=== PATIENT | female | born 1970 | race Caucasian/White ===

== ENCOUNTER 2019-03-18 08:58 | Inpatient (IN) | payer SELFPAY ==
[2019-03-18] MEDS ORDERED: NS 0.9% 1000 ML** 1,000 ML IV ONE ×2 (09:30→18:47)
[2019-03-18] MEDS ORDERED: Ondansetron INJ* 2 MG/ML VIAL IV ONE ×2 (09:55→16:44)
[2019-03-18 10:23] LABS: ABS Basophils 0.1 10^3/ul (0-0.2); ABS Lymphocytes 2.5 10^3/ul (1.0-4.8); ABS Monocytes 1.2 10^3/ul (0-0.8); ABS Neutrophils 10.8 10^3/ul (1.5-7.7); Eosinophil % 0.2 %; Hematocrit 46 % (35-47); Hemoglobin 15.3 g/dL (12.0-16.0); Lymphocyte % 17.2 %; Mean Corpuscular HGB Conc 33 g/dL (31-36); Mean Corpuscular Hemoglobin 30 pg (27-31); Mean Corpuscular Volume 89 fL (80-97); Mean Platelet Volume 9.2 fL (7.4-10.4); Platelet Count 352 10^3/uL (150-450); Red Blood Count 5.18 10^6 /uL (3.70-4.87); Red Cell Distribution Width 15 % (10-15); White Blood Count 14.6 10^3/uL (3.5-10.8)
[2019-03-18 10:29] LABS: INR 1.04 (0.82-1.09)
[2019-03-18 10:47] LABS: Albumin 4.3 g/dL (3.2-5.2); Albumin/Globulin Ratio 1.6 (1-3); BUN/Creatinine Ratio 8.5 (8-20); C Reactive Protein 2.77 mg/L (<8.01); Calcium 9.2 mg/dL (8.6-10.3); EGFR Non-African American 86.8 (>60); Globulin 2.7 g/dL (2-4); Magnesium 1.9 mg/dL (1.9-2.7); Total Bilirubin 0.7 mg/dL (0.2-1.0)
[2019-03-18 10:53] LABS: HCG Pregnancy 2.62 mIU/mL
[2019-03-18 11:13] LABS: Urine Appearance Clear; Urine Bacteria 1+ (Absent); Urine Bilirubin Negative (Negative); Urine Blood 1+ (Negative); Urine Color Yellow; Urine Glucose Negative (Negative); Urine Ketones Negative (Negative); Urine Nitrite Negative (Negative); Urine Protein Negative (Negative); Urine Red Blood Cell 1+(3-5/hpf) (Absent); Urine Specific Gravity 1.003 (1.010-1.030); Urine Squamous Epithelial Cell Present (Absent); Urine Urobilinogen Negative (Negative); Urine White Blood Cell Trace(0-5/hpf) (Absent)
--- NOTE | 2019-03-18 14:23 | ED ---
Abdominal Pain/Female - HPI Summary HPI Summary: this patient is a 49-year-old female who presents to the ED with nausea, vomiting and mild diffuse abdominal pain which occurred for approximately 18 hours yesterday. She states this has been happening more frequently. This began approximately 6 months ago, endorsing nausea, vomiting and abdominal pain approximately 8 hours after eating. She denies eating anything specific which has been causing the symptoms. Denies any allergens to food. Symptoms are not worse or better after eating anything specific, including fatty foods. This is the third time she has been seen in the ED, [place] [facility] no imaging has been done. Patient states proximal 8 hours after eating, every 4-10 days, she will have profuse nausea, vomiting, diarrhea and abdominal pain for the following 12-18 hours. She states over the past 4 days, she has been eating chicken broth and wheat thins, and denies any N/V sxs until yesterday when she ate chicken salad. She also endorses diaphoresis without subjective fevers. - History of Current Complaint Chief Complaint: EDNauseaVomitDiarrh Stated Complaint: VOMITING,HEADACHE PER PT Time Seen by Provider: 03/18/19 09:04 Hx Obtained From: Patient ?: No Onset/Duration: Sudden Onset Timing: Hours Severity Initially: Moderate Severity Currently: Moderate Pain Intensity: 3 Pain Scale Used: 0-10 Numeric Location: Other - diffuse - worse to the RUQ Character: Cramping Aggravating Factor(s): Food Alleviating Factor(s): Spontaneous Resolution Associated Signs and Symptoms: Positive: Negative - Risk Factors Ectopic Risk Factor: Negative Allergies/Adverse Reactions: Allergies Allergy/AdvReac Type Severity Reaction Status Date / Time morphine AdvReac Severe GI Upset Verified 03/18/19 09:03 PMH/Surg Hx/FS Hx/Imm Hx Previously Healthy: Yes - Immunization History Hx Pertussis Vaccination: No Immunizations Up to Date: Yes Infectious Disease History: No Infectious Disease History: Denies: Traveled Outside the [place] in Last 30 Days - Social History Occupation: Employed Full-time Lives: With Family Alcohol Use: None Hx Substance Use: Yes Substance Use Type: Reports: Marijuana Hx Tobacco Use: No Smoking Status (MU): Never Smoked Tobacco Review of Systems Constitutional: Negative Negative: Fever, Chills, Fatigue, Skin Diaphoresis Negative: Palpitations, Chest Pain Negative: Shortness Of Breath, Cough Positive: Abdominal Pain, Vomiting, Diarrhea, Nausea Genitourinary: Negative Positive: no symptoms reported, see HPI Negative: Arthralgia, Myalgia Neurological: Negative All Other Systems Reviewed And Are Negative: Yes Physical Exam Triage Information Reviewed: Yes Vital Signs On Initial Exam: Initial Vitals Temp Pulse Resp BP Pulse Ox 98.2 F 107 16 152/104 98 03/18/19 08:59 03/18/19 08:59 03/18/19 08:59 03/18/19 08:59 03/18/19 08:59 Vital Signs Reviewed: Yes Appearance: Positive: Well-Appearing, Well-Nourished Skin: Positive: Warm, Skin Color Reflects Adequate Perfusion Head/Face: Positive: Normal Head/Face Inspection Eyes: Positive: EMRE, Conjunctiva Clear Neck: Positive: Supple, No Lymphadenopathy Respiratory/Lung Sounds: Positive: Breath Sounds Present Cardiovascular: Positive: RRR, Pulses are Symmetrical in both Upper and Lower Extremities Abdomen Description: Positive: Soft, Other: - RUQ pain/negative mcghee's. Negative: CVA Tenderness (R), CVA Tenderness (L), Distended, Guarding Musculoskeletal: Positive: Normal, Strength/ROM Intact Neurological: Positive: Speech Normal Psychiatric: Positive: Affect/Mood Appropriate AVPU Assessment: Alert - E Diagnostics - Vital Signs Vital Signs Temp Pulse Resp BP Pulse Ox 03/18/19 13:05 76 139/98 95 03/18/19 12:05 73 148/104 98 03/18/19 11:20 75 127/90 96 03/18/19 09:19 123/90 03/18/19 08:59 98.2 F 107 16 152/104 98 - Laboratory Lab Results: Lab Results 03/18/19 03/18/19 03/18/19 Range/Units 10:15 10:15 10:15 WBC 14.6 H (3.5-10.8) 10^3/uL RBC 5.18 H (3.70-4.87) 10^6 /uL Hgb 15.3 (12.0-16.0) g/dL Hct 46 (35-47) % MCV 89 (80-97) fL MCH 30 (27-31) pg MCHC 33 (31-36) g/dL RDW 15 (10-15) % Plt Count 352 (150-450) 10^3/uL MPV 9.2 (7.4-10.4) fL Neut % (Auto) 74.0 % Lymph % (Auto) 17.2 % Rabun % (Auto) 7.9 % Eos % (Auto) 0.2 % Baso % (Auto) 0.7 % Absolute Neuts (auto) 10.8 H (1.5-7.7) 10^3/ul Absolute Lymphs (auto) 2.5 (1.0-4.8) 10^3/ul Absolute Monos (auto) 1.2 H (0-0.8) 10^3/ul Absolute Eos (auto) 0.0 (0-0.6) 10^3/ul Absolute Basos (auto) 0.1 (0-0.2) 10^3/ul Absolute Nucleated RBC 0.0 10^3/ul Nucleated RBC % 0.0 INR (Anticoag Therapy) 1.04 (0.82-1.09) Sodium 137 (135-145) mmol/L Potassium 3.0 L (3.5-5.0) mmol/L Chloride 102 (101-111) mmol/L Carbon Dioxide 28 (22-32) mmol/L Anion Gap 7 (2-11) mmol/L BUN 6 (6-24) mg/dL Creatinine 0.71 (0.51-0.95) mg/dL Est GFR ( Amer) 105.0 (>60) Est GFR (Non-Af Amer) 86.8 (>60) BUN/Creatinine Ratio 8.5 (8-20) Glucose 98 (70-100) mg/dL Lactic Acid (0.5-2.0) mmol/L Calcium 9.2 (8.6-10.3) mg/dL Magnesium 1.9 (1.9-2.7) mg/dL Total Bilirubin 0.70 (0.2-1.0) mg/dL AST 19 (13-39) U/L ALT 18 (7-52) U/L Alkaline Phosphatase 109 H (34-104) U/L C-Reactive Protein 2.77 (<8.01) mg/L Total Protein 7.0 (6.4-8.9) g/dL Albumin 4.3 (3.2-5.2) g/dL Globulin 2.7 (2-4) g/dL Albumin/Globulin Ratio 1.6 (1-3) Amylase 35 (29-103) U/L Lipase 12 (11.0-82.0) U/L Beta HCG, Quant 2.62 mIU/mL Urine Color Urine Appearance Urine pH (5-9) Ur Specific [place] (1.010-1.030) Urine Protein (Negative) Urine Ketones (Negative) Urine Blood (Negative) Urine Nitrate (Negative) Urine Bilirubin (Negative) Urine Urobilinogen (Negative) Ur Leukocyte Esterase (Negative) Urine WBC (Auto) (Absent) Urine RBC (Auto) (Absent) Ur Squamous Epith Cells (Absent) Urine Bacteria (Absent) Urine Glucose (Negative) 03/18/19 03/18/19 Range/Units 10:15 10:56 WBC (3.5-10.8) 10^3/uL RBC (3.70-4.87) 10^6 /uL Hgb (12.0-16.0) g/dL Hct (35-47) % MCV (80-97) fL MCH (27-31) pg MCHC (31-36) g/dL RDW (10-15) % Plt Count (150-450) 10^3/uL MPV (7.4-10.4) fL Neut % (Auto) % Lymph % (Auto) % Rabun % (Auto) % Eos % (Auto) % Baso % (Auto) % Absolute Neuts (auto) (1.5-7.7) 10^3/ul Absolute Lymphs (auto) (1.0-4.8) 10^3/ul Absolute Monos (auto) (0-0.8) 10^3/ul Absolute Eos (auto) (0-0.6) 10^3/ul Absolute Basos (auto) (0-0.2) 10^3/ul Absolute Nucleated RBC 10^3/ul Nucleated RBC % INR (Anticoag Therapy) (0.82-1.09) Sodium (135-145) mmol/L Potassium (3.5-5.0) mmol/L Chloride (101-111) mmol/L Carbon Dioxide (22-32) mmol/L Anion Gap (2-11) mmol/L BUN (6-24) mg/dL Creatinine (0.51-0.95) mg/dL Est GFR ( Amer) (>60) Est GFR (Non-Af Amer) (>60) BUN/Creatinine Ratio (8-20) Glucose (70-100) mg/dL Lactic Acid 1.5 (0.5-2.0) mmol/L Calcium (8.6-10.3) mg/dL Magnesium (1.9-2.7) mg/dL Total Bilirubin (0.2-1.0) mg/dL AST (13-39) U/L ALT (7-52) U/L Alkaline Phosphatase (34-104) U/L C-Reactive Protein (<8.01) mg/L Total Protein (6.4-8.9) g/dL Albumin (3.2-5.2) g/dL Globulin (2-4) g/dL Albumin/Globulin Ratio (1-3) Amylase (29-103) U/L Lipase (11.0-82.0) U/L Beta HCG, Quant mIU/mL Urine Color Yellow Urine Appearance Clear Urine pH 7.0 (5-9) Ur Specific [place] 1.003 L (1.010-1.030) Urine Protein Negative (Negative) Urine Ketones Negative (Negative) Urine Blood 1+ A (Negative) Urine Nitrate Negative (Negative) Urine Bilirubin Negative (Negative) Urine Urobilinogen Negative (Negative) Ur Leukocyte Esterase Negative (Negative) Urine WBC (Auto) Trace(0-5/hpf) (Absent) Urine RBC (Auto) 1+(3-5/hpf) A (Absent) Ur Squamous Epith Cells Present A (Absent) Urine Bacteria 1+ A (Absent) Urine Glucose Negative (Negative) Result Diagrams: 03/18/19 10:15 03/18/19 10:15 Lab Statement: Any lab studies that have been ordered have been reviewed, and results considered in the medical decision making process. Abdominal Pain Fem Course/Dx - Course Course Of Treatment: During this course of treatment, the patient is evaluated for abdominal pain, nausea, vomiting and some diarrhea. Labs obtained show a 14 ,000 white count and elevated CRP. A gallbladder US: IMPRESSION: CHOLELITHIASIS WITH A SLIGHTLY THICKENED GALLBLADDER WALL MEASURING 3 MM. THE SONOGRAPHIC FINDINGS CAN BE ASSOCIATED WITH ACUTE CHOLECYSTITIS IN THE CORRECT CLINICAL SETTING. IF IT WILL INFLUENCE CLINICAL MANAGEMENT FURTHER CHARACTERIZATION COULD BE MADE WITH A HIDA SCAN OR MRCP. Discussed with Dr. Alexander who recommends HIDA if patient is symptomatic. Discussed with Dr. Bird. HIDA scan ordered and is pending. Pt was given zofran while in the ED and since then, has been asymptomatic. She is signed out to Bradley Best PA-C pending results. - Diagnoses Differential Diagnosis: Positive: Gall Bladder Disease, Renal Colic, Other - biliary sludge, gastroenteritis, cholelithiasis, choledocolithiasis Provider Diagnoses: Nausea & vomiting Discharge ED - Sign-Out/Discharge Documenting (check all that apply): Sign-Out Patient Signing out patient TO: Bradley Best Patient Received Moderate/Deep Sedation with Procedure: No - Discharge Plan Condition: Fair Referrals: [facility], [Primary Care Provider] - - Billing Disposition and Condition Condition: FAIR
[2019-03-18] MEDS ORDERED: Ketorolac INJ* 30 MG/ML 1 ML VIAL IV ONE (15:54)
[2019-03-18] MEDS ORDERED: Morphine 4 MG/ML VIAL (1 ml) 4 MG/ML VIAL IV ONE ×2 (16:44→18:21)
[2019-03-18] MEDS ORDERED: Piperacillin/Tazobac ADVAN(*) 3.375 GM in NS 0.9% 100 ML* 100 ML IVPB ONE (18:47)
--- NOTE | 2019-03-18 18:52 | PN ---
Progress Note - Progress Note Date of Service: 03/18/19 Note: Patient signed out to me by Marion DAWSON pending results of HIDA scan. HIDA scan positive for cystic duct obstruction. Discussed patient with Dr. Mitchell is production checker for surgery who recommended admission to hospitalist for observation and IV antibiotics. Patient to be admitted to hospitalist in stable condition for IV antibiotics and further evaluation by surgery.
[2019-03-18] MEDS ORDERED: Morphine 4 MG/ML VIAL (1 ml) 4 MG/ML VIAL IV PRN (19:14)
[2019-03-18] MEDS ORDERED: NS 0.9% 1000 ML** 1,000 ML IV SCH (19:45)
[2019-03-18] MEDS ORDERED: Zosyn per Pharmacy* NOTE FOLLOW UP SCH (20:00)
[2019-03-18] MEDS: Ondansetron INJ* 2 MG/ML VIAL IV SCH ×2 (21:22→23:39)
--- NOTE | 2019-03-18 21:23 | HP ---
HOSPITAL MEDICINE HISTORY AND PHYSICAL: DATE OF ADMISSION: 03/18/19 PRIMARY CARE PHYSICIAN: None. ATTENDING PHYSICIAN: Luis Angel Jin MD * (dictation provided by Edy Maher NP ) CHIEF COMPLAINT: Abdominal pain with nausea and vomiting. HISTORY OF PRESENT ILLNESS: Ms. Doran is a 49-year-old female with no significant past medical history, who presents today to the hospital with a concern for intermittent episodes of abdominal pain with nausea and vomiting. Ms. Doran states that her symptoms began on Tuesday. At that time, she had about 12 hours of nausea and vomiting associated with abdominal pain in the right upper quadrant. She had these symptoms again on Tuesday and briefly again today and therefore, she came to the emergency room for evaluation. She denies diarrhea. She states at this point she does not have nausea or vomiting, but she does have right upper quadrant pain. She denies any fever. She has had no chest pain. No cough. No shortness of breath. In the emergency room, Ms. Doran had labs which showed a white blood cell count of 14.6 but a CRP of 2.77. Her urine showed no evidence of infection. She went on for gallbladder ultrasound, which showed concern for "cholelithiasis with slightly thickened gallbladder wall measuring 3 mm, the sonographic findings can be associated with acute cholecystitis in the correct clinical setting." She went on for a HIDA scan, which showed the following, "no radiotracer seen filling the gallbladder lumen either on the standard images or the post morphine injection 4 hour delayed images, scintigraphic findings are consistent with cystic duct obstruction." PAST MEDICAL HISTORY: None. FAMILY HISTORY: The patient reports that she is not aware of her father's side of the family or her father's medical history. The mother had breast cancer and at 62. SOCIAL HISTORY: She tried to quit smoking 3 months ago. She is smoking very intermittently now. No report of alcohol use or drug use. REVIEW OF SYSTEMS: A 14-point review of systems was completed with Ms. Doran and all those not mentioned above were negative. PHYSICAL EXAMINATION GENERAL: Ms. Doran is sitting in the bed, she is in no acute distress. VITAL SIGNS: Temperature 98.2, pulse rate 74, respiratory rate 16, O2 saturation 92% on room air, blood pressure 141/96. LUNGS: Clear to auscultation bilaterally with no accessory muscle use and good aeration. HEART: S1, S2. No murmur, rub, or gallop and regular. ABDOMEN: Soft. There is tenderness to deep palpation in the right upper quadrant. Bowel sounds are positive. No rebound or guarding. NEURO: She is alert. She is oriented x3. She moves all extremities equally. There is no facial asymmetry or focal weakness. Extraocular movements are intact. EXTREMITIES: No cyanosis or edema. SKIN: Intact. DIAGNOSTIC STUDIES/LAB DATA: WBC 14.6, hemoglobin 15.3, hematocrit 46, platelet count 352. INR 1.04. Sodium 137, potassium 3.0, chloride 102, serum bicarbonate 28, BUN 6, creatinine 0.71, glucose 98. Lactic acid 1.5. CRP 2.77. Urine shows no evidence of infection. EKG shows a sinus rhythm with no evidence of ischemia. Gallbladder ultrasound and hepatobiliary nuclear scan are as read per above and the EKG is pending. ASSESSMENT AND PLAN: Ms. Doran is a 49-year-old female with no known past medical history, who presents today to the hospital with concern for abdominal pain, nausea, and vomiting. Our plans are for admission to the hospital for the followin. Nausea, vomiting, abdominal pain with acute cystic duct obstruction: This case has been reviewed with Surgery and they will be consulting and seeing the patient tomorrow. In the meantime, the patient will be treated with Zosyn, intravenous fluids, Zofran for nausea, and morphine for pain. The patient has no known past medical history and is able to easily obtain 4 METs of activity on a regular basis. No further cardiac testing is indicated. 2. DVT prophylaxis. SCDs with early mobility. 3. Code status is full code. TIME SPENT: Approximately 60 minutes was spent on the admission of this patient ; more than half of the time was spent with the patient at the bedside reviewing the events leading up to this hospitalization, performing the physical examination, and reviewing my plan of care. EDY MAHER NP [id number]/[facility] #: [id number] MTDD
--- NOTE | 2019-03-18 21:47 | CONS ---
CONSULTATION REPORT: DATE OF CONSULT: 03/18/19 - ROOM #338 REASON FOR CONSULT: Right upper quadrant pain, nausea, and vomiting. HISTORY OF PRESENT ILLNESS: This is a 49-year-old female who presented to [facility] Emergency Room with a 5-month history of progressively worsening, episodic, postprandial nausea, vomiting associated with right upper quadrant abdominal pain and diarrhea. She had initially noted symptoms when living in [place] and presented to the local emergency room there. She reports she was told she had an elevated lipase at that time. She had no imaging done and was told to avoid fatty foods and green foods. The patient reports that she had a second episode of severe pain approximately 2 weeks after that and ended up back in that same emergency room. Again, she was discharged without imaging. The patient reports that she did self-medicate with Prilosec for a couple of weeks without any improvement in her symptoms. The patient has no primary care provider. She moved to [facility], and she reports that she has continued to have ongoing episodes of the same symptoms. Last episode began 4 o'clock this morning after eating a meal of chicken and pasta salad last night. She states she had multiple episodes of emesis with the food that she had eaten then. She describes yellow/gold colored emesis. She has had no fever or chills. She has had diarrhea. She states that she has been fine tolerating liquids but eating any solids seems to make things worse. She denies hematemesis or bilious emesis. After presenting to the emergency room today, laboratory work revealed a white blood cell count of 14.6, and she was sent for an ultrasound which showed cholelithiasis with gallbladder wall 3 mm. She was then sent for a HIDA scan and the initial HIDA scan did not visualize the gallbladder. Delayed images are pending. The patient has not had any pain medication since arriving to the emergency room , but she did receive antiemetics. The patient also reports a history of a 20-pound weight loss over the past 5 or 6 months, unintentional. She denies any tea colored urine or ketan colored stools. PAST MEDICAL HISTORY: She denies any medical problems, but has not seen a medical provider for 10 or 15 years. PAST SURGICAL HISTORY: She has had tonsillectomy in her youth, a ganglion cyst excision from the right wrist in the 1980s. She also has had a partial hysterectomy in 2005. This was done in [place]. MEDICATIONS: None. ALLERGIES: MORPHINE causes GI upset. FAMILY HISTORY: Mother had breast cancer. Father's history unknown. Half brother is alive and well. SOCIAL HISTORY: She is single. She is intermittent smoker who reports rare alcohol use and she smokes marijuana on occasion. REVIEW OF SYSTEMS: Review of system was completed and was significant for the abovementioned issues. Otherwise, 14-point review of systems was negative. PHYSICAL EXAM: On physical examination, she is 5 feet 4 inches, 180 pounds. She has a temperature of 98.2, pulse of 74. She has respirations of 16, her O2 sat is 92% on room air. Her blood pressure is 141/96. Her sclerae are anicteric, and mucous membranes are moist. No otorrhea, no rhinorrhea. Her abdomen was noted to have a healed scar and was obese, soft, nondistended, nontender. No palpable masses, no hernias, no hepato or splenomegaly appreciated. No Carlson sign. DIAGNOSTIC STUDIES/LAB DATA: Laboratory data was reviewed. CBC findings as above. Chemistries notable for a low potassium at 3.0. Other electrolytes were normal. Transaminases and bilirubin were normal. Alkaline phosphatase was mildly elevated at 109. CRP was normal at 2.77. Amylase and lipase were both normal. Imaging was reviewed. Ultrasound findings as above. Hepatobiliary scan findings as above. IMPRESSION: This is a 49-year-old female with what appears to be biliary colic without clinical evidence of acute cholecystitis. She has a HIDA scan pending. PLANS/RECOMMENDATIONS: I recommended that the patient have followup as an outpatient. If the HIDA scan is to be repeated, I would advise morphine administration prior to this to avoid false positive results on the delayed imaging. I have provided her with a card from our office and suggested that she follow up as an outpatient as it seems she will be a candidate for outpatient cholecystectomy. The above was discussed with staff PA in the emergency room. [id number]/[facility] #: [id number] PIA
[2019-03-18] MEDS: ZOSYN 3.375 GM Q8H per EXTENDED INFUSION IVPB SCH ×2 (23:40)
[2019-03-19] MEDS: Ondansetron INJ* 2 MG/ML VIAL IV SCH ×6 (03:44→23:43)
[2019-03-19 04:35] LABS: ABS Basophils 0.1 10^3/ul (0-0.2); ABS Eosinophils 0.2 10^3/ul (0-0.6); ABS Lymphocytes 2.6 10^3/ul (1.0-4.8); ABS Monocytes 0.9 10^3/ul (0-0.8); ABS Neutrophils 6.9 10^3/ul (1.5-7.7); Eosinophil % 2.2 %; Hematocrit 41 % (35-47); Hemoglobin 13.9 g/dL (12.0-16.0); Lymphocyte % 24.4 %; Mean Corpuscular HGB Conc 34 g/dL (31-36); Mean Corpuscular Hemoglobin 30 pg (27-31); Mean Corpuscular Volume 89 fL (80-97); Mean Platelet Volume 8.9 fL (7.4-10.4); Platelet Count 300 10^3/uL (150-450); Red Blood Count 4.64 10^6 /uL (3.70-4.87); Red Cell Distribution Width 15 % (10-15); White Blood Count 10.7 10^3/uL (3.5-10.8)
[2019-03-19 04:51] LABS: Calcium 8.1 mg/dL (8.6-10.3); EGFR African American 94.2 (>60); EGFR Non-African American 77.9 (>60); Potassium 3.2 mmol/L (3.5-5.0)
[2019-03-19] MEDS: KCL 20 MEQ/100 ML IVPREMIX* 20 MEQ/100 ML BAG IV SCH ×3 (07:56→17:21)
[2019-03-19] MEDS ORDERED: Lactated Ringers 1000 ML Bag* 1,000 ML IV SCH (08:00)
[2019-03-19] MEDS: ZOSYN 3.375 GM Q8H per EXTENDED INFUSION IVPB SCH ×6 (08:08→23:43)
[2019-03-19] MEDS: NS 0.9% 1000 ML** 1,000 ML IV SCH ×2 (13:44→23:43)
[2019-03-19 21:45] LABS: BUN/Creatinine Ratio 3.9 (8-20); Calcium 8.3 mg/dL (8.6-10.3); EGFR African American 95.6 (>60); Potassium 3.6 mmol/L (3.5-5.0)
[2019-03-20] MEDS: Ondansetron INJ* 2 MG/ML VIAL IV SCH ×3 (03:30→12:00)
[2019-03-20 07:02] LABS: BUN/Creatinine Ratio 2.8 (8-20); Calcium 8.4 mg/dL (8.6-10.3); EGFR Non-African American 86.8 (>60); Potassium 3.4 mmol/L (3.5-5.0)
[2019-03-20] MEDS: ZOSYN 3.375 GM Q8H per EXTENDED INFUSION IVPB SCH ×2 (08:40)
[2019-03-20] MEDS: NS 0.9% 1000 ML** 1,000 ML IV SCH (09:53)
[2019-03-20] MEDS ORDERED: Bupivacaine 0.25% EPI 200,000* 30 ML SDV ONE (14:06)
[2019-03-20] MEDS ORDERED: Lidocaine 2% PF * 5 ML VIAL ONE (14:24)
[2019-03-20] MEDS ORDERED: Rocuronium* 10 MG/ML VIAL ONE (14:24)
[2019-03-20] MEDS ORDERED: Propofol* 10 MG/ML 20 ML BTL ONE (14:24)
[2019-03-20] MEDS ORDERED: Midazolam* 1 MG/ML 2 ML VIAL (2 MG) ONE (14:24)
[2019-03-20] MEDS ORDERED: fentaNYL* 50 MCG/ML 2 ML VIAL (100 MCG VIAL) ONE ×3 (14:24→16:13)
[2019-03-20] MEDS ORDERED: Sugammadex * 500 MG/5 ML VIAL IV PUSH ONE (15:28)
[2019-03-20] MEDS ORDERED: Ondansetron INJ* 2 MG/ML VIAL ONE (15:48)
[2019-03-20] MEDS ORDERED: DiMENhydriNATE IV* 50 MG/ML VIAL ONE ×2 (15:55→16:13)
[2019-03-20] MEDS ORDERED: PROCHLORPERAZINE INJ 5 MG/ML 2 ML VIAL IV PRN (16:11)
[2019-03-20] MEDS ORDERED: oxyCODONE/Acetamin 5/325 MG* TAB PO PRN (16:11)
[2019-03-20] MEDS ORDERED: Ketorolac INJ* 30 MG/ML 1 ML VIAL IV PRN (16:11)
[2019-03-20] MEDS ORDERED: DiMENhydriNATE IV* 50 MG/ML VIAL IV PUSH PRN (16:11)
[2019-03-20] MEDS ORDERED: Naloxone* 0.4 MG/ML 1 ML VIAL IV PRN (16:11)
[2019-03-20] MEDS ORDERED: HYDROcodone/ACETAMIN 5-325 MG* 1 TAB PO PRN (16:11)
[2019-03-20] MEDS: fentaNYL* 50 MCG/ML 2 ML VIAL (100 MCG VIAL) IV PRN ×2 (16:15→16:36)
[2019-03-20] MEDS ORDERED: PROCHLORPERAZINE INJ 5 MG/ML 2 ML VIAL ONE (16:38)
[2019-03-20] MEDS ORDERED: Scopolamine 1.5 mg* PATCH ONE (16:38)
[2019-03-20] MEDS ORDERED: Scopolamine PATCH Remove* 1 NOTE MISC PATCH OFF SCH (17:00)
[2019-03-20] MEDS ORDERED: Scopolamine 1.5 mg* PATCH TRANSDERM SCH (17:00)
[2019-03-20 17:54] VITALS: BP 143/88
--- NOTE | 2019-03-21 02:05 | OP ---
DATE OF OPERATION: 03/20/19 - ROOM #338 DATE OF : 66 SURGEON: Alexandro Whitt MD. OPERATOR CONTROL ROOM: Theresa Farooq NP. ANESTHESIOLOGIST: Dr. Higuera. ANESTHESIA: General endotracheal. PRE-OP DIAGNOSIS: Acute cholecystitis. POST-OP DIAGNOSIS: Acute cholecystitis, umbical hernia. OPERATIVE PROCEDURE: Laparoscopic cholecystectomy, umbilical hernia repair. ESTIMATED BLOOD LOSS: Minimal. IV FLUIDS: Crystalloids. SPECIMEN: Gallbladder. DRAINS: None. COMPLICATIONS: None. COUNTS: The instrument, needle, and sponge counts were correct. DESCRIPTION OF PROCEDURE: The patient was brought to the operating room and placed on the table supine. Sequential compression devices were placed on both lower extremities. General anesthesia was administered. She was prepped and draped in the usual sterile fashion. She received appropriate intravenous antibiotics. Time-out was performed. Local anesthetic was infiltrated into the skin and soft tissue prior to making each incision. The patient was noted to have a umbilical hernia. In order to enter the abdomen, a curvilinear infraumbilical incision was created after infiltrating local anesthetic and then the umbilical stalk was elevated and divided from the anterior abdominal wall. The umbilical hernia was entered with a 12-mm trocar placed into the peritoneal cavity. Carbon dioxide was insufflated to a pressure of 15 mmHg. Under direct visualization, 5-mm trocars were placed - one in the subxiphoid position and two in the right upper quadrant. Gallbladder was identified, appeared to be pale pink in color with evidence of acute on chronic infection. The gallbladder was now distended. The gallbladder was grasped at the fundus which was retracted cephalad and then the infundibulum was identified. The gallbladder appeared to be long and thin. The peritoneum investing in the gallbladder was incised, dissected free. The cystic artery was identified and the cystic duct as well. Critical views obtained. The cystic artery was doubly clipped and divided and the cystic duct was doubly clipped and divided, and the gallbladder was freed from attachment to the liver using the cautery and sharp dissection staying in an avascular plane. After the gallbladder was freed, it was retrieved through the umbilical site and submitted to Pathology. There was noted to be 1 area in the gallbladder fossa that was oozing and it was a small vessel and was able to be clipped. After hemostasis was assured, the ports were removed under direct visualization. Carbon dioxide was released. To repair the umbilical hernia, it was cleaned back to fascial edges and it was about 2 cm. It was closed with 0 Vicryl in interrupted [id number] fashion and simple interrupted suture was used as well to complete the closure. Umbilical stalk was reapproximated to the anterior abdominal wall with 3-0 Vicryl. The skin incisions were all closed with 4-0 Monocryl in a subcuticular fashion and then Steri-Strips and dressing applied. The patient tolerated the procedure well. She was extubated and transferred to Recovery in stable condition. [id number]/[facility] #: [id number] MTDD
--- NOTE | 2019-04-10 21:49 | DS ---
DISCHARGE SUMMARY: DATE OF ADMISSION: 03/18/19 DATE OF DISCHARGE: 03/20/19 DISCHARGE DIAGNOSIS: Acute cholecystitis. PROCEDURE: Laparoscopic cholecystectomy on 03/20/19. HOSPITAL COURSE: This is a 49-year-old female without a significant past medical history who presented to the [facility] Emergency Room with a history of episodic abdominal pain going on for a number of months and she had evaluation which included ultrasound demonstrating gallstones and then a HIDA scan that showed findings of cystic duct obstruction. She was admitted to the hospitalist service, initially placed on antibiotics, and subsequently transferred to the surgical service in anticipation of laparoscopic cholecystectomy. Her surgery was performed on 03/20/19. Please refer to the operative report for the details. Postoperatively, the patient did well and she was discharged from the recovery room. She was discharged in a stable condition and she was discharged to home. At the time of discharge, her final pathology was pending; however, that subsequently did show chronic cholecystitis with cholelithiasis. MEDICATION AT DISCHARGE: Tramadol. [id number]/[facility] #: [id number] PIA
== END 2019-03-20 17:55 | disposition home or self-care (01) | DRG 419 ==
LOC: ED 08:58 → SSU 19:30
PROVIDERS: ADMIT Internal Medicine; ATTEND Surgery
PROC: 0WQF4ZZ Repair Abdominal Wall, Percutaneous Endoscopic Approach (ICD-10-PCS; 2019-03-20)
PROC: 0FT44ZZ Resection of Gallbladder, Percutaneous Endoscopic Approach (ICD-10-PCS; principal; 2019-03-20 16:30)
DX: K80.00 Calculus of gallbladder with acute cholecystitis without obstruction (principal); K42.9 Umbilical hernia without obstruction or gangrene; F17.210 Nicotine dependence, cigarettes, uncomplicated; Z88.5 Allergy status to narcotic agent; Z80.3 Family history of malignant neoplasm of breast
CPT/HCPCS: 36415; 76705; 78226; 80048; 80053; 81003; 81015; 82150; 83605; 83690; 83735; 84702; 85025; 85610; 86140; 87086; 88304; 93005; 99285; A9270-GY; A9537; J0780; J1240; J1885; J2250; J2270; J2405; J2543; J2704; J3010; J3480

== ENCOUNTER 2019-03-24 10:58 | Emergency (ER) | payer MEDICAID ==
[2019-03-24] MEDS ORDERED: HYDROmorphone INJ1* 1 MG/ML SYRINGE IV SLOW PU ONE (11:14)
[2019-03-24] MEDS ORDERED: NS 0.9% 1000 ML** 1,000 ML IV ONE (11:14)
[2019-03-24] MEDS ORDERED: Metoclopramide IV* 5 MG/ML 2 ML VIAL IV ONE (11:14)
--- NOTE | 2019-03-24 11:16 | ED ---
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 The patient rates the pain 7/10 in severity. Symptoms aggravated by nothing. Symptoms alleviated by nothing. Patient states she had a cholecystectomy on Tuesday03/20/19. Patient states she was fine until this morning. - History of Current Complaint Chief Complaint: EDAbdPain Stated Complaint: VOMITING/ABD PAIN PER PT Hx Obtained From: Patient Onset/Duration: Lasting Hours - 5, Still Present Timing: Constant Severity Currently: Moderate Pain Intensity: 7 Pain Scale Used: 0-10 Numeric Location: Discrete At: RUQ Aggravating Factor(s): Nothing Alleviating Factor(s): Nothing Associated Signs and Symptoms: Positive: Diaphoresis, Nausea, Vomiting Allergies/Adverse Reactions: Allergies Allergy/AdvReac Type Severity Reaction Status Date / Time morphine AdvReac Severe GI Upset Verified 03/24/19 11:02 PMH/Surg Hx/FS Hx/Imm Hx Respiratory History: Reports: Hx Asthma History: Reports: Hx Kidney Infection - once 30 years ago Sensory History: Reports: Hx Contacts or Glasses - uses reading glasses Denies: Hx Hearing Aid Opthamlomology History: Reports: Hx Contacts or Glasses - uses reading glasses Neurological History: Reports: Hx Headaches - comes with current illness - Surgical History Surgery Procedure, Year, and Place: Tonsilectomy . Ganglion cyst removal . hysterectomy ~2006. cholecystectomy 03/22/19 Hx Anesthesia Reactions: No - N/V Infectious Disease History: No Infectious Disease History: Denies: Traveled Outside the [place] in Last 30 Days - Family History Known Family History: Positive: Other - breast cancer - Social History Alcohol Use: None Hx Substance Use: Yes Substance Use Type: Reports: Marijuana Hx Tobacco Use: Yes Smoking Status (MU): Former Smoker Review of Systems Positive: Skin Diaphoresis Positive: Abdominal Pain - RUQ, Vomiting, Nausea All Other Systems Reviewed And Are Negative: Yes Physical Exam - Summary Physical Exam Summary: Appearance: The patient is well-nourished in no acute distress and in no acute pain. Patient is retching and vomiting. Skin: The skin is warm and dry, and skin color reflects adequate perfusion. HEENT: The head is normocephalic and atraumatic. The pupils are equal and reactive. The conjunctivae are clear and without drainage. Nares are patent and without drainage. Mouth reveals moist mucous membranes, and the throat is without erythema and exudate. The external ears are intact. The ear canals are patent and without drainage. The tympanic membranes are intact. Neck: The neck is supple with full range of motion and non-tender. There are no carotid bruits. There is no neck vein distension. Respiratory: Chest is non-tender. Lungs are clear to auscultation and breath sounds are symmetrical and equal. Cardiovascular: Heart is regular rate and rhythm. There is no murmur or rub auscultated. There is no peripheral edema and pulses are symmetrical and equal. Abdomen: The abdomen is soft. There is tenderness in RUQ. There are normal bowel sounds heard in all four quadrants and there is no organomegaly palpated. Musculoskeletal: There is no back tenderness noted. Extremities are non-tender with full range of motion. There is good capillary refill. There is no peripheral edema or calf tenderness elicited. Neurological: Patient is alert and oriented to person, place and time. The patient has symmetrical motor strength in all four extremities. Cranial nerves are grossly intact. Deep tendon reflexes are symmetrical and equal in all four extremities. Psychiatric: The patient has an appropriate affect and does not exhibit any anxiety or depression. Triage Information Reviewed: Yes Vital Signs On Initial Exam: Initial Vitals Temp Pulse Resp BP Pulse Ox 96.1 F 85 20 207/131 99 03/24/19 10:59 03/24/19 10:59 03/24/19 10:59 03/24/19 10:59 03/24/19 10:59 Vital Signs Reviewed: Yes Diagnostics - Vital Signs Vital Signs Temp Pulse Resp BP Pulse Ox 03/24/19 10:59 96.1 F 85 20 207/131 99 - Laboratory Result Diagrams: 03/24/19 11:27 03/24/19 11:27 Lab Statement: Any lab studies that have been ordered have been reviewed, and results considered in the medical decision making process. - CT Abdomen/Pelvis CT Interpretation Completed By: Radiologist Summary of CT Findings: 1. STATUS POST RECENT CHOLECYSTECTOMY, NO EVIDENCE FOR HEMATOMA OR SIGNIFICANT FLUID COLLECTION. 2. SMALL AMOUNT OF FREE INTRAPERITONEAL FLUID. 3. SKIN THICKENING AND INCREASED DENSITY IN THE SUBCUTANEOUS TISSUES IN THE ANTERIOR ABDOMINAL WALL IN THE PERIUMBILICAL REGION MOST CONSISTENT WITH POSTSURGICAL CHANGE. 4. SUGGESTION OF VERY MILD WALL THICKENING IN THE DISTAL TRANSVERSE AND DESCENDING COLON POSSIBLY INDICATING MILD COLITIS. RECOMMEND CLINICAL CORRELATION. 5. SMALL RIGHT ADRENAL NODULE. CONSIDER EITHER A FOLLOW-UP MRI OF THE ADRENAL GLANDS WITHOUT CONTRAST OR A FOLLOW-UP CT OF THE ABDOMEN IN 3 MONTHS TIME TO DEMONSTRATE STABILITY. ED physician has reviewed this report. - Ultrasound Liver Ultrasound Interpretation Completed By: Radiologist Summary of Ultrasound Findings: STATUS POST CHOLECYSTECTOMY WITHOUT EVIDENCE FOR ACUTE FINDING. ED physician has reviewed this report. Re-Evaluation - Re-Evaluation First Eval Re-Evaluation Time: 13:00 Change: Improved Comment: patient is no longer vomiting and she feels much better after medications. patient is nontender in RUQ Abdominal Pain Fem Course/Dx - Course Course Of Treatment: Ms. Doran presented in obvious distress. She was retching complaining of pain in the right upper quadrant. She stated that she felt exactly the same way she had felt when she came in last week ultimately culminating in her gallbladder being removed. She has been fine at home after discharge until this morning. She's been urinating normally and moving her bowels and bladder normally. She was nontoxic in appearance on arrival but in clear distress. Her vitals were good except for the fact that she is quite hypertensive on arrival. IV was initiated and she was placed on the monitor. We gave her IV Dilaudid and Zofran for her symptoms while repeat labs were obtained. She was found to have a white count of 18,000 C reactive protein was only 10. Ultrasound of her right upper quadrant showed no fluid collections or dilated common bile duct. CT scan revealed a likely mild colitis. She did not have a CT scan on her initial presentation so it is unclear if this is changed. After the medication she was completely improved she denied any pain or nausea and was nontender to palpation. It's unclear to me if the colitis is what has been causing her symptoms. It seems most likely that it's infectious. She is old for an inflammatory onset. She does not seem to have any other risk factors for ischemic colitis. Her white count is elevated which may be a combination of infection and emargination from her presentation. Her CRP is not particularly elevated. I will start her on Cipro and Flagyl as well as tramadol and Zofran and get her close follow-up. Again she is completely improved. With her improvement her blood pressure improved also however she remained hypertensive. Reviewing her recent admission she was also hypertensive and although she is a bit worse today. I think she is asymptomatic in terms of her hypertension at this time and recommended that she follow up with [facility] the first of the week. - Diagnoses Provider Diagnoses: Colitis, Post-op pain, Hypertension Discharge ED - Sign-Out/Discharge Documenting (check all that apply): Patient Departure - Discharge Patient Received Moderate/Deep Sedation with Procedure: No - Discharge Plan Condition: Stable Disposition: HOME Prescriptions: Ciprofloxacin TAB* [Cipro Tab*] 500 mg PO BID #20 tab metroNIDAZOLE [Flagyl 500 MG TAB] 500 mg PO TID #30 tab Ondansetron ODT TAB* [Zofran Odt TAB*] 4 mg PO Q6H PRN #20 tab.odt PRN Reason: Nausea/Vomiting traMADol TAB* [Ultram*] 50 mg PO Q6HR PRN #20 tab MDD 4 PRN Reason: Pain Patient Education Materials: Hypertension (ED), Colitis (ED) Referrals: Alexandro Whitt MD [Medical Doctor] - 2 Days [facility] [Outside] - 2 Days Additional Instructions: Follow up with [facility] in the next 2-3 days. Follow up with Dr. Whitt in the next 2-3 days. Return to the Emergency Department for new or worsening symptoms. - Billing Disposition and Condition Condition: STABLE Disposition: Home - Attestation Statements Document Initiated by Ioana: Yes Documenting Scribe: Sydni Lee Provider For Whom Ioana is Documenting (Include Credential): Deacon Wagoner MD Scribe Attestation: I, Sydni Lee, scribed for eDacon Wagoner MD on 03/24/19 at 1746. Scribe Documentation Reviewed: Yes Provider Attestation: The documentation as recorded by the Sydni pearl accurately reflects the service I personally performed and the decisions made by me, Deacon Wagoner MD Status of Scribe Document: Viewed
[2019-03-24 11:53] LABS: ABS Basophils 0.1 10^3/ul (0-0.2); ABS Eosinophils 0.3 10^3/ul (0-0.6); ABS Lymphocytes 2.6 10^3/ul (1.0-4.8); ABS Neutrophils 14.3 10^3/ul (1.5-7.7); Eosinophil % 1.8 %; Hematocrit 44 % (35-47); Hemoglobin 14.9 g/dL (12.0-16.0); Lymphocyte % 14.2 %; Mean Corpuscular HGB Conc 34 g/dL (31-36); Mean Corpuscular Hemoglobin 30 pg (27-31); Mean Corpuscular Volume 88 fL (80-97); Mean Platelet Volume 9.9 fL (7.4-10.4); Platelet Count 390 10^3/uL (150-450); Red Blood Count 5.01 10^6 /uL (3.70-4.87); Red Cell Distribution Width 15 % (10-15); White Blood Count 18.4 10^3/uL (3.5-10.8)
[2019-03-24 12:08] LABS: Albumin 4.5 g/dL (3.2-5.2); Albumin/Globulin Ratio 1.7 (1-3); BUN/Creatinine Ratio 12.3 (8-20); C Reactive Protein 10.19 mg/L (<8.01); Calcium 9.2 mg/dL (8.6-10.3); EGFR African American 101.7 (>60); Globulin 2.7 g/dL (2-4); Potassium 3.2 mmol/L (3.5-5.0); Total Bilirubin 0.7 mg/dL (0.2-1.0); Total Protein 7.2 g/dL (6.4-8.9)
[2019-03-24 12:41] LABS: Troponin I 0.01 ng/mL (<0.04)
[2019-03-24] MEDS ORDERED: Ondansetron INJ* 2 MG/ML VIAL IV ONE (15:05)
[2019-03-24 15:13] VITALS: BP 187/103
== END 2019-03-24 14:55 | disposition home or self-care (01) ==
LOC: ED 10:58
DX: K52.9 Noninfective gastroenteritis and colitis, unspecified (principal); I10 Essential (primary) hypertension; R11.2 Nausea with vomiting, unspecified; R51 Headache; Z87.891 Personal history of nicotine dependence; R10.11 Right upper quadrant pain
CPT/HCPCS: 36415; 74176; 76705; 80053; 83605; 83690; 84484; 85025; 86140; 87040; 96361; 96374; 96375; 99284; J1170; J2405; J2765

== ENCOUNTER 2019-03-29 20:41 | Inpatient (IN) | payer MEDICAID ==
--- OUTSIDE RECORDS SUMMARY | 2019-03-29 20:53 | XMS REPORT | Continuity of Care Document ---
:1970 External Reference #:[id number] Author Name Chiquita Colón DO (transmitted by agent of provider Ashtyn Vora) Address [address] [place] [id number] Problems Description No Information Available Social History Type Date Description Comments Sex Unknown Tobacco Use Start: Unknown End: Patient is a former smoker Unknown Tobacco Use Start: Unknown End: Patient is a former smoker smoked x 20 years , Unknown quit 4 months ago Smoking Status Reviewed: 03/27/19 Patient is a former smoker smoked x 20 years, quit 4 months ago Allergies, Adverse Reactions, Alerts Active Allergies Reaction Severity Comments Date Morphine Nausea Mild Takes anti nausea meds before Morphine 03/27/2019 Medications Active Medications SIG Qnty Indications Ordering Provider Date Chlorthalidone by mouth every 30tabs I10 Chiquita Colón 03/27/2019 25mg Tablets day DO Cipro 1 tablet 3 Unknown 500mg Tablets times a day Flagyl 1 tablet 3 Unknown 500mg Tablets times a day Zofran take 1 tab 3 Unknown 4mg Tablets times a day Immunizations Description No Information Available Vital Signs Date Vital Result Comment 03/27/2019 9:47am Height 61 inches 5'1" Weight 180.00 lb Heart Rate 71 /min BP Systolic 168 mmHg 152/108 after 5 minutes BP Diastolic 101 mmHg 152/108 after 5 minutes Body Temperature 97.6 F O2 % BldC Oximetry 97 % BMI (Body Mass Index) 34.0 kg/m2 Results Description No Information Available Procedures Date Code Description Status 03/20/2019 59282 Laparoscopy Cholecystectomy Completed 03/20/2019 41522 Laparoscopy Cholecystectomy Completed Medical Devices Description No Information Available Encounters Type Date Location Provider Dx Diagnosis Office Visit 03/18/2019 Surgical Alexandro Whitt, K80.20 [facility], FACS gallbladder w/o cholecystitis w/o obstruction Assessments Date Code Description Provider 03/27/2019 Z12.31 Encounter for screening mammogram for Chiquita DO [place] malignant neoplasm of breast 03/27/2019 I10 Essential (primary) hypertension Chiquita Colón DO 03/27/2019 R11.0 Nausea Chiquita Colón DO 03/27/2019 Z13.220 Encounter for screening for lipoid Chiquita Colón DO disorders 03/27/2019 Z13.1 Encounter for screening for diabetes Chiquita Colón DO mellitus 03/20/2019 K80.20 [facility] of gallbladder without Theresa Farooq, [employer] cholecystitis without obstruction 03/20/2019 K80.20 Calculus of gallbladder without Alexandro Whitt MD, FACS cholecystitis without obstruction 03/18/2019 K80.20 Calculus of gallbladder without Alexandro Whitt MD, FACS cholecystitis without obstruction Plan of Treatment Future Appointment(s):04/16/2019 8:00 am - Chiquita Colón DO at [facility] Internal Medicine - [address]/30/2019 11:45 am - Alexandro Whitt MD, FACS at [facility]03/27/2019 - Chiquita Colón DOZ12.31 Encounter for screening mammogram for malignant neoplasm of [id number] Essential (primary) hypertensionNew Medication:Chlorthalidone 25 mg - by mouth every dayFollow up:2 splpyQ63.0 OlpakfR50.220 Encounter for screening for lipoid disordersNew Labs: Lipid Profile (Trig/Chol/HDL), Ordered: 03/27/19Z13.1 Encounter for screening for diabetes mellitusNew Labs:Hemoglobin A1c (Glyco HGB), Ordered: Hepatitis C Antibody, Ordered: 03/27/19 Functional Status Description No Information Available Mental Status Description No Information Available Referrals Description No Information Available
[2019-03-29] MEDS ORDERED: Ondansetron INJ* 2 MG/ML VIAL IV ONE ×2 (21:18→22:21)
[2019-03-29] MEDS ORDERED: NS 0.9% 1000 ML** 1,000 ML IV ONE (21:18)
[2019-03-29] MEDS ORDERED: NS 0.9% 1000 ML** 2,000 ML IV ONE (21:19)
[2019-03-29] MEDS ORDERED: HYDROmorphone INJ* 0.5 MG/0.5 ML SYRINGE IV ONE ×2 (21:42→22:20)
--- NOTE | 2019-03-29 21:51 | ED ---
Abdominal Pain/Female - HPI Summary HPI Summary: Patient presents complaining of severe nausea vomiting and epigastric pain starting yesterday. Patient has recent cholecystectomy on 03/20/[address] Whitt. Patient was discharged home in stable condition, returned to this ED with severe epigastric pain and nausea vomiting. Patient symptoms were controlled, CT positive only for possible colitis. Patient started on Flagyl and Cipro. Ultrasound of liver also negative at that time. Patient was discharged in stable condition. Patient returns today with return of same symptoms. Patient states Zofran ODT not controlling symptoms. Patient states she is afraid to eat for fear of triggering nausea and vomiting. Patient states she is tolerating minimal fluids. Denies fever, cough, sore throat, CP, SOB, change in urine, change in BM, vaginal symptoms. Medical history is recent diagnosis of hypertension, just started meds. Abdominal surgical history is total hysterectomy, cholecystectomy. - History of Current Complaint Chief Complaint: EDAbdPain Stated Complaint: ABD PAIN AND VOMITING PER PT Time Seen by Provider: 03/29/19 21:15 Hx Obtained From: Patient Onset/Duration: Sudden Onset, Lasting Days Timing: Constant Severity Initially: Moderate Severity Currently: Moderate Pain Intensity: 7 Pain Scale Used: 0-10 Numeric Location: Discrete At: RUQ, Epigastric Character: Sharp Aggravating Factor(s): Food Alleviating Factor(s): Nothing Associated Signs and Symptoms: Positive: Decreased Appetite, Nausea, Vomiting Allergies/Adverse Reactions: Allergies Allergy/AdvReac Type Severity Reaction Status Date / Time morphine Allergy Vomiting Verified 03/29/19 20:44 Home Medications: Home Medications Chlorthalidone TAB* [Hygroton TAB*] 25 mg PO DAILY 03/29/19 [History Confirmed 03/29/19] Ciprofloxacin TAB* [Cipro 500 MG TAB*] 500 mg PO BID 03/29/19 [History Confirmed 03/29/19] Ondansetron ODT TAB* [Zofran 4 MG Odt TAB*] 4 mg PO Q6H PRN 03/29/19 [History Confirmed 03/29/19] metroNIDAZOLE * [Flagyl] 500 mg PO TID 03/29/19 [History Confirmed 03/29/19] traMADol TAB* [Ultram*] 50 mg PO Q6HR PRN 03/29/19 [History Confirmed 03/29/19] PMH/Surg Hx/FS Hx/Imm Hx Endocrine/Hematology History: Denies: Hx Anticoagulant Therapy Cardiovascular History: Denies: Hx Pacemaker/ICD History: Denies: Hx Dialysis Sensory History: Denies: Hx Eye Prosthesis Opthamlomology History: Denies: Hx Legally Blind EENT History: Denies: Hx Deafness Neurological History: Denies: Hx Dementia Infectious Disease History: No Infectious Disease History: Denies: Traveled Outside the [place] in Last 30 Days - Family History Known Family History: Positive: Non-Contributory - Social History Alcohol Use: None Substance Use Type: Reports: Marijuana Smoking Status (MU): Former Smoker Review of Systems Constitutional: Negative Eyes: Negative ENT: Negative Cardiovascular: Negative Respiratory: Negative Positive: Abdominal Pain, Vomiting, Nausea Genitourinary: Negative Musculoskeletal: Negative Skin: Negative Neurological: Negative Psychological: Normal All Other Systems Reviewed And Are Negative: Yes Physical Exam Triage Information Reviewed: Yes Vital Signs On Initial Exam: Initial Vitals Temp Pulse Resp BP Pulse Ox 97.8 F 93 22 210/139 98 03/29/19 20:43 03/29/19 20:43 03/29/19 20:43 03/29/19 20:43 03/29/19 20:43 Vital Signs Reviewed: Yes Appearance: Positive: Well-Appearing Skin: Positive: Warm Head/Face: Positive: Normal Head/Face Inspection Eyes: Positive: Normal ENT: Positive: Normal ENT inspection Neck: Positive: Supple Respiratory/Lung Sounds: Positive: Clear to Auscultation Cardiovascular: Positive: Normal Abdomen Description: Positive: Other: - Patient tender to palpation in right upper quadrant and epigastrium. Abdominal exam otherwise unremarkable. Surgical incisions are clean dry and intact. Musculoskeletal: Positive: Normal Neurological: Positive: Normal Psychiatric: Positive: Normal AVPU Assessment: Alert - Ara Coma Scale Best Eye Response: 4 - Spontaneous Best Motor Response: 6 - Obeys Commands Best Verbal Response: 5 - Oriented Coma Scale Total: 15 Diagnostics - Vital Signs Vital Signs Temp Pulse Resp BP Pulse Ox 03/29/19 20:43 97.8 F 93 22 210/139 98 - Laboratory Result Diagrams: 03/29/19 21:46 03/29/19 21:46 Lab Statement: Any lab studies that have been ordered have been reviewed, and results considered in the medical decision making process. Abdominal Pain Fem Course/Dx - Course Course Of Treatment: Patient presents complaining of severe nausea vomiting and epigastric pain starting yesterday. Patient has recent cholecystectomy on with Dr. Whitt. Patient was discharged home in stable condition, returned to this ED 03/24/19 with severe epigastric pain and nausea vomiting. Patient symptoms were controlled, CT positive only for possible colitis. Patient started on Flagyl and Cipro. Ultrasound of liver also negative at that time. Patient was discharged in stable condition. Patient returns today with return of same symptoms. Patient states Zofran ODT not controlling symptoms. Patient states she is afraid to eat for fear of triggering nausea and vomiting. Patient states she is tolerating minimal fluids. Denies fever, cough, sore throat, CP, SOB, change in urine, change in BM, vaginal symptoms. Medical history is recent diagnosis of hypertension, just started meds. Abdominal surgical history is total hysterectomy, cholecystectomy. Elevated blood pressure. Vital signs otherwise unremarkable. WBC 21. Potassium 2.9. Patient started liquid by mouth potassium, but could not complete. Potassium IV administered. EKG sinus rhythm with prolonged QT interval. Inverted T waves V1, V2. Lactic 2.6. Anion gap 14. Sodium 133. 2 liters normal saline administered. Zofran 8 mg IV administered. Reglan 10 mg IV administered. Labs otherwise unremarkable. Ultrasound of liver negative. CT of abdomen and pelvis negative. Discussed patient with surgery correspondence clerk Dr. Roldan who did not feel this was likely a surgical issue given negative imaging. Discussed patient with GI correspondence clerk Dr. Muñoz who recommended admission to hospitalist for HIDA scan to rule out cystic duct leak. Patient admitted to hospitalist for GI evaluation. - Diagnoses Provider Diagnoses: Nausea & vomiting, Epigastric pain Discharge ED - Sign-Out/Discharge Documenting (check all that apply): Patient Departure Patient Received Moderate/Deep Sedation with Procedure: No - Discharge Plan Condition: Fair Disposition: ADMITTED TO [facility] Referrals: No Primary Care Phys,NOPCP [Primary Care Provider] - - Billing Disposition and Condition Condition: FAIR Disposition: Admitted to [facility] - Attestation Statements Provider Attestation: I was available for consult. This patient was seen by the ASHLEY. The patient was not presented to, seen by, or examined by me. Antoine Mcghee MD
[2019-03-29 21:52] LABS: Hematocrit 45 % (35-47); Mean Corpuscular HGB Conc 34 g/dL (31-36); Mean Corpuscular Hemoglobin 30 pg (27-31); Mean Corpuscular Volume 89 fL (80-97); Mean Platelet Volume 8.8 fL (7.4-10.4); Platelet Count 544 10^3/uL (150-450); Red Cell Distribution Width 15 % (10-15); White Blood Count 21.4 10^3/uL (3.5-10.8)
[2019-03-29 22:10] LABS: Albumin 4.8 g/dL (3.2-5.2); Albumin/Globulin Ratio 1.6 (1-3); BUN/Creatinine Ratio 10.1 (8-20); C Reactive Protein 5.4 mg/L (<8.01); EGFR African American 80.9 (>60); EGFR Non-African American 66.9 (>60); Potassium 2.9 mmol/L (3.5-5.0); Total Bilirubin 0.6 mg/dL (0.2-1.0); Total Protein 7.8 g/dL (6.4-8.9)
[2019-03-29 22:16] LABS: HCG Pregnancy 2.77 mIU/mL
[2019-03-29 22:21] LABS: ABS Basophils 0.2 10^3/ul (0-0.2); ABS Lymphocytes 3.2 10^3/ul (1.0-4.8); ABS Monocytes 1.8 10^3/ul (0-0.8); ABS Neutrophils 16.1 10^3/ul (1.5-7.7); Eosinophil % 0.1 %
[2019-03-29] MEDS: NS 0.9% 1000 ML** 2,000 ML IV ONE (22:55)
[2019-03-29] MEDS ORDERED: Potassium Chlor TAB* 20 MEQ TAB.ER PO ONE (23:47)
[2019-03-29] MEDS ORDERED: Metoclopramide IV* 5 MG/ML 2 ML VIAL IV ONE (23:48)
[2019-03-29] MEDS ORDERED: Iohexol 300* (CONTRAST) 10 ML SDV IV ONE (23:50)
[2019-03-30] MEDS: NS 0.9% 1000 ML** 2,000 ML IV ONE (00:20)
[2019-03-30] MEDS ORDERED: Potassium Chloride* LIQUID 20 MEQ/15 ML UDC PO ONE (00:41)
[2019-03-30 01:34] LABS: Urine Appearance Clear; Urine Bacteria Absent (Absent); Urine Bilirubin Negative (Negative); Urine Blood 1+ (Negative); Urine Color Straw; Urine Glucose Negative (Negative); Urine Ketones 1+ (Negative); Urine Nitrite Negative (Negative); Urine Protein Negative (Negative); Urine Red Blood Cell Trace(0-2/hpf) (Absent); Urine Specific Gravity 1.011 (1.010-1.030); Urine Squamous Epithelial Cell Present (Absent); Urine Urobilinogen Negative (Negative); Urine White Blood Cell Trace(0-5/hpf) (Absent)
[2019-03-30] MEDS ORDERED: KCL 20 MEQ/100 ML IVPREMIX* 20 MEQ/100 ML BAG IV ONE ×2 (02:49→08:25)
[2019-03-30] MEDS ORDERED: HYDROmorphone INJ* 0.5 MG/0.5 ML SYRINGE IV SLOW PU PRN (04:01)
[2019-03-30] MEDS ORDERED: HYDROmorphone INJ1* 1 MG/ML SYRINGE IV SLOW PU PRN (04:25)
[2019-03-30] MEDS: Ondansetron INJ* 2 MG/ML VIAL IV PRN ×3 (05:25→22:03)
[2019-03-30 05:57] LABS: ABS Basophils 0.1 10^3/ul (0-0.2); ABS Lymphocytes 2.7 10^3/ul (1.0-4.8); ABS Monocytes 1.2 10^3/ul (0-0.8); ABS Neutrophils 13.9 10^3/ul (1.5-7.7); Eosinophil % 0.1 %; Hematocrit 40 % (35-47); Hemoglobin 13.4 g/dL (12.0-16.0); Lymphocyte % 14.9 %; Mean Corpuscular HGB Conc 33 g/dL (31-36); Mean Corpuscular Hemoglobin 29 pg (27-31); Mean Corpuscular Volume 89 fL (80-97); Mean Platelet Volume 8.9 fL (7.4-10.4); Platelet Count 468 10^3/uL (150-450); Red Blood Count 4.56 10^6 /uL (3.70-4.87); Red Cell Distribution Width 15 % (10-15); White Blood Count 17.9 10^3/uL (3.5-10.8)
[2019-03-30] MEDS: Lactated Ringers 1000 ML Bag* 1,000 ML IV SCH ×3 (06:02→23:48)
[2019-03-30 06:12] LABS: BUN/Creatinine Ratio 5.6 (8-20); Calcium 8.7 mg/dL (8.6-10.3); EGFR African American 103.3 (>60); EGFR Non-African American 85.4 (>60); Potassium 3.2 mmol/L (3.5-5.0)
--- NOTE | 2019-03-30 07:55 | HP ---
ADMISSION HISTORY AND PHYSICAL: DATE OF ADMISSION: 03/30/19 CHIEF COMPLAINT: Abdominal pain, nausea, vomiting. HISTORY OF PRESENT ILLNESS: This is a 49-year-old female who has recently had cholelithiasis and cho lecystectomy on 03/20/19 and was doing well. On 03/24/19, she had a recurrence of her abdominal pain , nausea, and vomiting. She came in to the ER, at which point repeat testing was performed including a CAT scan of her belly and a repeat ultrasound, both of which were unremarkable, except for some po ssible colitis. She was started on some antibiotics and subsequently discharged home. On 03/28/19, she was again having a vomiting episode, which was accompanied by severe migraine, so she went to [facility] where she was given some migraine treatment and some nausea and pain medications and w as subsequently discharged back home. Comes in today again with the same exact pain. Pain is descri bed as 10/10 intense pain, which is usually across the abdomen, radiating from right to left, accompa nied by severe retching and vomiting. She states that for the last 2 days she has not been eating we ll and her pain is worse whenever she attempts to eat even a little bit, but what she brings up is mo stly frothy, bubbly liquid that she describes as her stomach acid. She did have 1 episode of vomitin g something green, which was apparently after she had some spinach and pasta. She also had 1 episode of diarrhea. The patient did feel feverish; however, she has never had high temperature when tested over the last few visits. PAST MEDICAL HISTORY: She was newly diagnosed with hypertension on her most recent admission. PAST SURGICAL HISTORY: 1. She has had a recent cholecystectomy on 03/20/19, as mentioned. 2. History of . 3. Hysterectomy with bilateral salpingo-oophorectomy. 4. Tonsillectomy. 5. Right wrist ganglion cyst removal. HOME MEDICATIONS: The patient is currently on: 1. Tramadol 50 mg q.6 hours p.r.n. 2. Ciprofloxacin 100 mg p.o. b.i.d. 3. Metronidazole 100 mg p.o. t.i.d. 4. Zofran 4 mg p.o. q.6 hours p.r.n. 5. Chlorthalidone 25 mg oral daily. ALLERGIES: The patient is documented to be allergic to MORPHINE, which causes upset stomach and vomi ting. FAMILY HISTORY: The patient is not aware of her father's side of the family. Mother had breast cance r and at age 52. SOCIAL HISTORY: Quit smoking about 3 weeks ago, but prior to that was an intermittent smoker, but di d not smoke very high. Denies any alcohol or drug use. Lives by herself. Her daughter also lives in [place] and can help her out and she is currently staying with a friend as well. REVIEW OF SYSTEMS: A 14-point review of systems did not reveal any new information, other than what is mentioned in the HPI. PHYSICAL EXAMINATION GENERAL: The patient is awake, alert, and oriented x3, did not appear to be in any acute respiratory distress. VITAL SIGNS: In the ER, BP initially was noted to be elevated at 210/139, but after administration o f hydromorphone, it has improved to 136/92, heart rate 87, respiration rate 15, saturating 95% on mila m air, temperature was noted to be 97.8. HEAD AND NECK: Atraumatic, normocephalic. Bilateral pupils are reactive. Oral mucosa was moist. N cora: Supple. No jugular venous distention. LUNGS: Clear to auscultation bilaterally. No wheezing, rhonchi, or rales. HEART: S1, S2. Regular rate and rhythm. ABDOMEN: Soft, very minimally tender only on deep palpation. No rebound tenderness was appreciated. Bowel sounds were normoactive. EXTREMITIES: No cyanosis, clubbing, or edema. DIAGNOSTIC STUDIES/LAB DATA: Labs: CBC shows elevated white count of 21.4. Hemoglobin and hematocr it was showing hemoconcentration when compared to her baseline at 15.1, hematocrit of 45. Platelet c ount was noted to be elevated as well at 544. Comprehensive metabolic panel shows hypokalemia with p otassium of 2.9 and lactic acidosis with lactic acid level of 2.6. Random glucose minimally elevated at 140. Bicarb minimally decreased at 22. Lipase was noted to be 50, LFTs were within normal limit s. Urinalysis was negative for any leuk esterase, but positive for 1+ ketones and urine was also pos itive for blood and there were some squamous epithelial cells as well, but negative for any elevation in bilirubin or urobilinogen. Leuk esterase and nitrite were also both negative. Ultrasound of the liver shows postcholecystectomy and common bile duct has a diameter of 5 cm. Liver shows homogeneous echogenicity. No hepatic masses, lesions, or cysts. CT abdomen and pelvis showed right adrenal nodule, which was present on the previous scans as well. Cholecystectomy and hysterectomy, but otherwise appendix appeared to be normal. Bowels did not show any evidence of obstruction or mucosal thickening to suggest any colitis. IMPRESSION: This is a 49-year-old female with newly diagnosed hypertension and recently performed ch olecystectomy, here post nausea, vomiting, and abdominal pain. Could be due to cystic duct leak and G I suggested a HIDA scan in the morning. ASSESSMENT AND RECOMMENDATIONS: 1. Abdominal pain, nausea, vomiting. Questionable cystic duct leak versus any postsurgical complica tion. For now, we will perform the HIDA scan. If not, we could consider some kind of MRCP or an ERC P. Based on GI recommendation, we will place a GI consult as well for the morning. 2. Hypokalemia secondary to recurrent vomiting. Replace with IV. 3. Leukocytosis. More likely due to hemoconcentration, which should drop with the administration of IV fluids. The patient at this point does not seem to have any obvious fever and CT was not evident of any colitis at this point. The patient already finished a week of antibiotics for her colitis. I would not start any antibiotics unless there are further signs of systemic inflammatory response sy ndrome or sepsis. 4. History of hypertension. We will hold chlorthalidone in light of the patient's inability to tole rate p.o. and consider IV hydralazine if her systolic is elevated beyond 160. Once she is able to to lerate p.o., we could consider restarting oral antihypertensives. 5. Lactic acidosis. We will repeat lactic acid level with a.m. labs to check for resolution. 6. El evated random glucose. We will check an A1c level with morning labs to rule out any underlying diabe lyn as the patient does not visit doctors on a regular basis. 7. DVT prophylaxis. With sequential compression devices. [id number]/[facility] #: [id number]
[2019-03-30] MEDS: PROCHLORPERAZINE INJ 5 MG/ML 2 ML VIAL IV PRN ×2 (08:31→15:36)
--- NOTE | 2019-03-30 11:47 | PN ---
Progress Note - Progress Note Date of Service: 03/30/19 Note: Brief Surgery Note (full consult dictated) S: 49 yo female, 10 d s/p lap cholecystectomy for acute calculous cholecystitis (confirmed by US, HIDA, operative findings, and path) who did well the first 3 days, but then developed RUQ pain w/ assoc N&V. She states this occurs as much as 4-5 hrs postprandial and not assoc with any particular foods other than lettuce and spinach. It does not always happen after eating, and she has intervals where she is entirely pain-free. Was seen in ED on 03/24 (CT at that time showing small hiatal hernia and suggestion of "mild colitis" of the distal transverse and descending colon. She re-presented to the ED on 03/28 and again last night. She states the pain, N/V pattern is the same, and similar to her sx preceding her lap mejia (6 mo. w/ assoc wt loss of ~ 20 #). At present pain level 3/10. She is thirsty, but not interested in eating. Current Medications Hydralazine HCl (Apresoline Iv*) 5 mg IV SLOW PU Q6H PRN PRN Reason: Systolic Bp Greater Than:160 Hydromorphone HCl (Dilaudid Inj1s*) 0.5 mg IV SLOW PU Q4H PRN PRN Reason: PAIN - MODERATE Last Admin: 03/30/19 08:16 Dose: 0.5 mg Lactated Ringer's (Lactated Ringers 1000 Ml Bag*) 1,000 mls @ 125 mls/hr IV PER RATE KARINA Last Admin: 03/30/19 06:02 Dose: 125 mls/hr Ondansetron HCl (Zofran Inj*) 4 mg IV Q4H PRN PRN Reason: NAUSEA/VOMITING Last Admin: 03/30/19 05:25 Dose: 4 mg Prochlorperazine Edisylate (Compazine Inj*) 10 mg IV Q6H PRN PRN Reason: NAUSEA/VOMITING Last Admin: 03/30/19 08:31 Dose: 10 mg O: Vital Signs - 8 hr 03/30/19 03/30/19 03/30/19 03:49 04:13 04:33 Temperature 97.6 F 98.2 F Pulse Rate 77 73 77 Respiratory 13 16 13 Rate Blood Pressure 141/89 155/102 141/89 (mmHg) O2 Sat by Pulse 95 98 95 Oximetry 03/30/19 03/30/19 03/30/19 04:55 07:09 07:25 Temperature 97.6 F 98.1 F Pulse Rate 73 74 Respiratory 16 16 16 Rate Blood Pressure 155/102 147/95 (mmHg) O2 Sat by Pulse 98 96 Oximetry 03/30/19 03/30/19 03/30/19 08:00 08:16 09:32 Temperature 98.4 F Pulse Rate 72 Respiratory 18 16 16 Rate Blood Pressure 149/103 (mmHg) O2 Sat by Pulse 96 Oximetry Intake and Output Last 24 Hours 03/28/19 03/29/19 03/30/19 03/31/19 06:59 06:59 06:59 06:59 Intake Total 1000 0 Balance 1000 0 Weight 185 lb 9.6 oz Intake: IV Fluids 1000 Oral 0 0 Other: # Voids 0 Gen: WN female, sitting up in bed, NAD, but appears a bit "washed out" HEENT: no scleral icterus; mm dry Heart: reg Lungs: clear Abd: lap sites clean; no infection. +BS (normoactive). Soft w/ mild to moderate tenderness RUQ. No mass. Remainder soft, nontender. Labs: Laboratory Tests 03/29/19 03/29/19 03/29/19 21:46 21:46 21:46 WBC 21.4 H Hgb 15.0 Potassium 2.9 L Chloride 97 L Lactic Acid 2.6 H* C-Reactive Protein 5.40 Urine Ketones Urine Blood 03/29/19 03/30/19 03/30/19 23:50 05:42 05:42 WBC 17.9 H Hgb 13.4 Potassium 3.2 L Chloride 100 L Lactic Acid C-Reactive Protein Urine Ketones 1+ A Urine Blood 1+ A 03/30/19 05:42 WBC Hgb Potassium Chloride Lactic Acid 1.2 C-Reactive Protein Urine Ketones Urine Blood LFT's, lipase normal CT and US reports reviewed; HIDA viewed personally, but not yet read (I do not see extravasation). A: abdominal pain, N&V 10d postop from lap mejia; no indications of postop bleed , bile leak, or other postsurgical complications P: will d/w Dr. Roldan (my attending); GI to see; consider EGD
--- NOTE | 2019-03-30 12:19 | PN ---
Hospitalist Progress Note Date of Service: 03/30/19 Subjective- Pt is very uncomfortable with epigastric pain that radiates to the right abdomen , and feeling of nausea. Pt is very thirsty Objective- General- uncomfortable appearing woman eyes- no scleral icterus ENT- Mouth is dry Lungs- BL lungs are clear to auscultation. No wheezing, no rhonchi, no rales Heart- S1, S2, regular rate and rhythm abdomen- Soft and tender on deep palpation in RUQ and slightly in RLQ. Pain on deep palpation in RUQ and less in RLQ. Bowel sounds are normoactive. extremities- no cyanosis, clubbing, or edema WBC-17.9 platelet count- 468 neutrophils- 13.9 monocytes- 1.2 K+= 3.2L Cl= 100L BUN= 4L BUN/Creat=5.6L xlwpkse=119 hemoglobin A1C=6.0 lactic acid= 1.2(improved) Hida scan= no evidence of bile leak indicated' Assessment/Plan- This 49 yr old female with newly diagnosed HTN and recently performed cholecystectomy who presents with epigastric abdominal pain, nausea, and vomiting. 1.)Abdominal Pain, nausea, vomiting -HIDA scan-showed no cystic leak -EGD- scheduled today to rule out any upper GI causes of symtpoms -Ondansetron 4mg IV Q4H PRN -Hydromorphone .5 mg IV slow PU Q4H PRN 2.)Hypokalemia secondary to vomiting -replace with IV (lactated ringer's 1,000 mls @125 mls/hr IV per rate KARINA) 3.)Leukocytosis- likely due to hemoconcentration -should drop with IV fluids 4.) Hx of HTN -hold chlorthalidone bc pt cant handle PO -If BP>160-hydralazine 5 mg IV slow PU Q6H PRN 5.)Lactic acidosis -repeat lactic acid level -check A1c to rule out diabetes 6.)DVT prophylaxis SCD's
--- NOTE | 2019-03-30 13:14 | CONS ---
CC: Dr. Chiquita Colón; Dr. Teetee Roldan; Dr. Alexandro Whitt SURGICAL CONSULT NOTE: DATE OF CONSULT: 03/30/19 ATTENDING SURGEON: Dr. Teetee Roldan. CHIEF COMPLAINT: Abdominal pain, nausea, vomiting. HISTORY OF PRESENT ILLNESS: This is a 49-year-old generally healthy female, recently diagnosed with hypertension, who is 10 days status post laparoscopic cholecystectomy for acute calculous cholecystit is with Dr. Whitt. Preoperatively, she had had a 6-month history of intermittent symptoms including postprandial right upper quadrant pain and with associated 20-pound weight loss. She did have stones . Gallbladder ultrasound did show gallbladder wall thickening, but a normal common duct. A preopera tive HIDA scan was positive for nonvisualization of the gallbladder. Surgery itself was uneventful. She did undergo umbilical hernia repair at the same time. She had an uneventful first 3 days postop eratively, but then on 03/24/19 began to experience right upper quadrant pain radiating somewhat over to the left upper quadrant, but not to the back. It was associated with multiple episodes of nausea , vomiting. She was seen in the ED on 03/24/19. Noncontrast CT at that time showed a small hiatal h ernia and a question of mild colitis involving the distal transverse and descending colon. She was p laced on oral Cipro and Flagyl and discharged. She states that symptoms continued to occur and she r epresented to the ED on 03/28/19 this time also with migraine headache. She was again discharged onl y to return on 03/29/19. She states that pain seems to occur after eating, though it can be as much as 4 to 5 hours postprandial. She has not noted any particular associations with specific foods othe r than lettuce and spinach. She has vomited as recently as this morning even though at present she i s n.p.o. Her pain level at present is 3/10, but has been as high as 9/10. She feels feverish subjec tively, but has not had a measured elevated temperature. She did have 1 episode of diarrhea yesterda y. She denies any blood in her diarrhea or vomitus. She has never had a colonoscopy. She has never had a history of peptic ulcer disease, no history of kidney stones, no symptoms. PAST SURGICAL HISTORY: Her previous surgeries include the laparoscopic cholecystectomy on 03/20/19, also x1, and total abdominal hysterectomy with bilateral salpingo-oophorectomy for benign d isease. MEDICATIONS: Her medications at home include: 1. Cipro. 2. Flagyl. 3. Chlorthalidone. 4. Phenergan p.r.n. 5. Tramadol, which she has not been taking. ALLERGIES: Her only allergy is to MORPHINE (vomiting). FAMILY HISTORY: As per her admission history and physical and not repeated here. SOCIAL HISTORY: As per her admission history and physical and not repeated here. REVIEW OF SYSTEMS: Otherwise negative other than listed above. PHYSICAL EXAM: Height 5 feet 1 inch, weight 185 pounds (down from her usual 200), T-max 98.4, blood pressure ranging from 136 to 186 over 89 to 122, pulse 72, respirations 18, room air saturation 96%. General: Well-nourished, mildly obese female, in no acute distress. She is sitting up in bed and a ppears somewhat "washed out." Skin: Warm and dry. No suspicious rashes or lesions. HEENT: Pupils are equal, round, and reactive. EOMs intact. No scleral icterus or conjunctival pallor. Oropharynx : Mucous membranes dry. No intraoral lesions. Neck: No lymphadenopathy, thyromegaly, or masses. H eart: Regular rate and rhythm. No murmur noted. Lungs: Clear to auscultation. No rales or wheeze s. Abdomen: Laparoscopic incision sites healing well without evidence of infection. Mild tenderness to palpation as would be expected for 10 days postop. She does have moderate tenderness to deep palp ation in the right upper quadrant, but there is no palpable mass. The remainder of the abdomen is so ft and nontender even to deep palpation. No peritoneal signs. DIAGNOSTIC STUDIES/LAB DATA: Of note, white blood cell count on admission 21,400, repeat 17.9; hemog lobin on admission 15, repeat of 13.4. Potassium on admission 2.9, repeat of 3.2; chloride 100; lact ic acid on admission 2.6, repeat of 1.2. Liver function tests and lipase are normal. Her CRP was 5.4 . Urinalysis was notable for trace blood. CT and ultrasound reports were reviewed showing no particular changes of concern other than postopera tive changes as would be expected post cholecystectomy. A HIDA scan has also been done, but has not been read. I do not see any evidence for extravasation o f radionuclide. IMPRESSION AND PLAN: Right upper quadrant abdominal pain 10 days status post laparoscopic cholecyste ctomy without clear surgical cause. There does not appear to be evidence of postoperative bleed or b ile leak by the studies as noted. The patient is due to be seen by GI and possibly consider EGD. We will continue to follow with you. EUNICE HONG [id number]/[facility] #: [id number]
[2019-03-30] MEDS: hydrALAZINE IV* 20 MG/ML VIAL IV SLOW PU PRN ×2 (15:30→22:03)
[2019-03-30] MEDS ORDERED: fentaNYL* 50 MCG/ML 2 ML VIAL (100 MCG VIAL) ONE (17:21)
[2019-03-30] MEDS ORDERED: Midazolam* 1 MG/ML 10 ML VIAL (10 MG) ONE (17:21)
[2019-03-30] MEDS ORDERED: diPHENhydraMINE IV* 50 MG/ML 1 ml VIAL (BENADRYL) ONE (17:44)
--- NOTE | 2019-03-30 18:15 | PN ---
Progress Note - Progress Note Date of Service: 03/30/19 Note: GI EGD Note E: LA-C erosive esophagitis with scant ulcer. No fresh or old blood. G: small clean based ulcer in body, no fresh blood, scant old blood in stomach D: Multiple erosions and duodenitis in bulb and c-loop. BX No fresh or old blood. Rec: PPI BID x 3months Repeat EGD in 3 months Gastrin level tonight, PPI after Outpatient colonoscopy. Not sure the above explains all the symptoms but may have been contributing. Full liquids tonight, 03/31 advance as tolerated. Jacinto Joy 03/30/19 0530
--- NOTE | 2019-03-30 19:07 | PN ---
Subjective Date of Service: 03/30/19 Interval History: Patient complains of abdominal pain-4 out of 10. Had episode of vomiting. Nausea + she was anxious about her symptoms and was crying stating that it is so hard on her and it is going this long. Had diarrhea which was fatty and green Objective Active Medications: Hydralazine HCl (Apresoline Iv*) 5 mg IV SLOW PU Q6H PRN PRN Reason: Systolic Bp Greater Than:160 Last Admin: 03/30/19 15:30 Dose: 5 mg Hydromorphone HCl (Dilaudid Inj1s*) 0.5 mg IV SLOW PU Q4H PRN PRN Reason: PAIN - MODERATE Last Admin: 03/30/19 08:16 Dose: 0.5 mg Lactated Ringer's (Lactated Ringers 1000 Ml Bag*) 1,000 mls @ 125 mls/hr IV PER RATE KARINA Last Admin: 03/30/19 06:02 Dose: 125 mls/hr Ondansetron HCl (Zofran Inj*) 4 mg IV Q4H PRN PRN Reason: NAUSEA/VOMITING Last Admin: 03/30/19 13:13 Dose: 4 mg Pantoprazole Sodium (Protonix Iv*) 80 mg IV ONCE ONE Stop: 03/30/19 20:01 Pantoprazole Sodium (Protonix Tab*) 40 mg PO BID KARINA Prochlorperazine Edisylate (Compazine Inj*) 10 mg IV Q6H PRN PRN Reason: NAUSEA/VOMITING Last Admin: 03/30/19 15:36 Dose: 10 mg Vital Signs - 8 hr 03/30/19 03/30/19 03/30/19 11:30 15:27 16:22 Temperature 98.4 F 98.6 F 98.7 F Pulse Rate 72 77 69 Respiratory 18 20 18 Rate Blood Pressure 149/103 191/110 170/92 (mmHg) O2 Sat by Pulse 96 97 97 Oximetry 03/30/19 16:54 Temperature Pulse Rate 77 Respiratory 18 Rate Blood Pressure 178/95 (mmHg) O2 Sat by Pulse 96 Oximetry Oxygen Devices in Use Now: None Exam: Camilla is sitting on a bed and looks anxious. HEENT: Normocephalic and atraumatic. Sclera anicteric Lungs: clear Heart: S1/S2 heard with no murmur Abdomen: Soft and mild tenderness on epigastrium. NO mcghee's sign and rigidity and guarding Extremity: Normal neuro: alert, consious and oriented Result Diagrams: 03/30/19 05:42 03/30/19 05:42 Assess/Plan/Problems-Billing Assessment: 49 y/o F with hypertension and recent cholecystectomy(on 03/20) presented with subacute abdominal pain, nausea and vomiting. Found to have leucocytosis and hypokalemia and lactic acidosis(resolved). Found to have erosive esophagitis and gastric ulcer and duodenal erosions. - Patient Problems (1) Peptic ulcer disease Current Visit: Yes Status: Acute Code(s): K27.9 - PEPTIC ULC, SITE UNSP, UNSP AC OR CHR, W/O HEMOR OR PERF SNOMED Code(s): 64921119 Comment: Found on EGD presented with abd pain, nausea and vomiting. US and Ct abdomen and HIDA scan negative Plan: pantoprazole 40 mg BID zofran and proclorperazine repeat EGD in 3 months Outpatint colonoscopy gastrin level (2) Hypertension Current Visit: Yes Status: Acute Code(s): I10 - ESSENTIAL (PRIMARY) HYPERTENSION SNOMED Code(s): 33617561 (3) Hypokalemia Current Visit: Yes Status: Acute Code(s): E87.6 - HYPOKALEMIA SNOMED Code( s): 40535582 Comment: possibly due to vomiting and decreased intake kcl given will check bmp tomorrow (4) DVT prophylaxis Current Visit: Yes Status: Acute Code(s): Z29.9 - ENCOUNTER FOR PROPHYLACTIC MEASURES, UNSPECIFIED SNOMED Code(s): 800900816 Comment: On SCD (5) Full code status Current Visit: Yes Status: Acute Code(s): Z78.9 - OTHER SPECIFIED HEALTH STATUS SNOMED Code(s): 841810493 Status and Disposition: Inpatient; GI following Attending: Dorothy Rothman Attestation Documenting Resident: Rod Crandall Supervising Physician: Dorothy Rothman Attestation: This service has been performed in part by a resident under the direction of a teaching physician.I, Dorothy Rothman, performed the service, or was physically present during the critical, or pop portions of the service, furnished by the resident. I participated in the management of the patient.
[2019-03-30] MEDS ORDERED: Pantoprazole IV* 40 MG IV ONE (20:00)
--- NOTE | 2019-03-30 20:18 | CONS ---
CC: Alexandro Whitt MD CONSULTATION REPORT: DATE OF CONSULT: 03/30/19 REQUESTING PHYSICIAN: Dr. Hoff. REASON FOR CONSULTATION: Abdominal pain. HISTORY OF PRESENT ILLNESS: This is a pleasant 49-year-old female with a past medical history of rec ent cholecystectomy on 03/20/[address] Whitt who presents to the hospital with abdominal pain, na usea and vomiting. She states these episodes start with pain and start in the right upper quadrant t o right middle area and then centered in the epigastric area and then is followed by nausea and emesi s. Emesis can be mostly clear in color with some dry retching. She has these episodes every few days . The pain can be as high as 10/10 across the abdomen that lasts for a few more days and then dissip ates and she is well between episodes. Denies any hematemesis. No dysphagia or odynophagia. She st ates this pain is similar to what she experienced before her cholecystectomy. She denies any black o r blood in the stools. She admits to some loose stool and diarrhea, had a subjective fever at home. She does use marijuana, but has not used any in the last 1.5 months per patient. The pain and nause a and vomiting are better with a hot shower in the morning. She denies any Motrin, ibuprofen, or Caroline ve. She had a weight loss of about 20 pounds before her cholecystectomy, but states she has leveled off since then. She attributes this to fear of eating secondary to her nausea and vomiting. She has never had a colonoscopy or upper endoscopy. The remainder of the 14-point review of systems is gross ly negative. She had a CAT scan in [place] that possibly showed colitis. She was sent home on Cipr o and Flagyl and had a repeat CAT scan here on admission that was negative. PAST MEDICAL HISTORY: Hypertension, cholecystectomy on 03/20/19. PAST SURGICAL HISTORY: Cholecystectomy, , hysterectomy, tonsillectomy and a right wrist edward glion cyst removal. HOME MEDICATIONS: 1. Tramadol. 2. Cipro. 3. Metronidazole. 4. Zofran. 5. Chlorthalidone. ALLERGIES: MORPHINE causes an upset stomach. FAMILY HISTORY: No family history of GI cancer or IBD. SOCIAL HISTORY: Quit smoking about 3 weeks ago. Occasional marijuana use, but no use in the last 1. 5 months per patient. No illicit drug use. REVIEW OF SYSTEMS: The remainder of the 14-point review of systems is grossly negative. PHYSICAL EXAM: Vital Signs: Blood pressure is 178/95, pulse 77, respiratory rate 18, she is 96% on room air, T-max 98.7. In general, alert and oriented x3, no acute distress. HEENT: Atraumatic, nor mocephalic. Pupils equal, round, and reactive to light. Extraocular movements are intact. Conjunct ivae are pink. Sclerae are anicteric. Cardiovascular: Regular rate and rhythm. S1, S2. Respiratory : Clear to auscultation bilaterally. Abdomen: Soft, mild tenderness to palpation in the right uppe r quadrant. Bowel sounds positive. Incisions clean, dry and intact. No palpable hepatosplenomegaly . No guarding or rebound. Extremities: No clubbing, no cyanosis, no edema. Psych: Appropriate moo d and affect. DIAGNOSTIC STUDIES/LAB DATA: WBC count initially 21.4, now 17.9; platelet count 468,000; hemoglobin 13.4. Lactic acid on admission was 2.6, now 1.2. Hemoglobin A1c is 6. Potassium 3.2, chloride 100, BUN is 4, creatinine is 0.72, glucose is 115, calcium is 8.7. Urine with 1+ ketones, 1+ blood. She had a CT of the abdomen and pelvis on 03/29/19 that was without acute process. She had a HIDA scan that was negative for biliary leak today. ASSESSMENT AND PLAN: This is a 49-year-old female post cholecystectomy, now 10 days, who presents wi th abdominal pain, nausea and vomiting similar to her prodrome before cholecystectomy. 1. Abdominal pain, unclear etiology, atypical for peptic ulcer disease, but we will plan on upper en doscopy to evaluate. I discussed the risks, benefits and alternatives and would like to proceed with evaluation. It is suspicious potentially for cyclic vomiting syndrome or postcholecystectomy syndro me. I advised no further marijuana use; however, the last use was quite distant. Pending the result s of this, given her CAT scan findings in [place], would recommend outpatient colonoscopy in the nex t month or so. 2. Nausea and vomiting, no clear etiology. We will plan on EGD. 3. Abnormal CT in [place], now normalized with a CT here, possible colitis. We will plan on outpat ient colonoscopy pending clinical course. [id number]/[facility] #: [id number]
--- NOTE | 2019-03-31 01:19 | PRO ---
CC: Alexandro Whitt MD * ESOPHAGOGASTRODUODENOSCOPY: DATE OF PROCEDURE: 03/30/19 - ROOM #420 INDICATION FOR PROCEDURE: Abnormal pain and vomiting. PROCEDURE PERFORMED: Complete esophagogastroduodenoscopy with biopsies. MEDICATIONS GIVEN: Includes 8 mg IV midazolam, 75 mcg IV fentanyl, and 25 mg IV Benadryl. DESCRIPTION OF PROCEDURE: After the EGD procedure, including the risks, benefits, and alternatives, the risks not limited to perforation, surgery, missed lesions, and/or were explained to the patient, written informed consent was obtained, IV medication was given, and a bite-block was placed between the teeth. The adult Olympus gastroscope was then inserted into the patient's oropharynx into the tubular esophagus. The tubular esophagus had LA- C erosive esophagitis with the beginnings of an ulceration. There was no fresh or old blood. The scope was advanced through the lower esophageal sphincter into the stomach. The stomach had some old blood scattered throughout. A small ulcer in the body was there and clean based. Biopsy was taken for CLOtesting. On retroflexion a small sliding hiatal hernia was appreciated. The scope was then advanced through the widely patent pylorus into the duodenal bulb, C-loop, and distal duodenum. There was multiple clean-based erosions in the bulb and the C-loop of the duodenum. Biopsies were taken. The scope was then removed from the patient. She tolerated the procedure well. She returned to the recovery room in stable condition. IMPRESSION: 1. Complete esophagogastroduodenoscopy with biopsies. 2. LA-C erosive esophagitis with scant ulceration. 3. Clean based ulcer within the gastric body. 4. Multiple erosions and duodenitis. RECOMMENDATIONS: Check a gastrin level given the numerous erosions and the ulcer within the stomach in absence of significant NSAID abuse. Afterwards we will start IV PPI therapy. We will give her 80 mg IV tonight and start with 40 mg p.o. b.i.d. starting tomorrow. She will need a repeat EGD in 3 months' time to assess for healing and to look for underlying Estes's changes underneath her LA-C erosive esophagitis. I also would recommended an outpatient colonoscopy given her previous findings and CAT scan at [place], which indicated a colitis that seems to have now resolved and also given her age , looking for polyps. I am not entirely sure that the findings today explain all of her symptoms, they certainly may be contributing. We will see how she does after therapy. [id number]/[facility] #: [id number] PIA
[2019-03-31 06:50] LABS: ABS Basophils 0.2 10^3/ul (0-0.2); ABS Eosinophils 0.1 10^3/ul (0-0.6); ABS Lymphocytes 3.4 10^3/ul (1.0-4.8); ABS Monocytes 1.3 10^3/ul (0-0.8); ABS Neutrophils 11.1 10^3/ul (1.5-7.7); Eosinophil % 0.6 %; Hematocrit 45 % (35-47); Hemoglobin 15.4 g/dL (12.0-16.0); Lymphocyte % 21.3 %; Mean Corpuscular HGB Conc 34 g/dL (31-36); Mean Corpuscular Hemoglobin 30 pg (27-31); Mean Corpuscular Volume 88 fL (80-97); Mean Platelet Volume 9.1 fL (7.4-10.4); Nucleated Red Blood Cells % 0.1; Platelet Count 523 10^3/uL (150-450); Red Blood Count 5.12 10^6 /uL (3.70-4.87); Red Cell Distribution Width 15 % (10-15); White Blood Count 16.2 10^3/uL (3.5-10.8)
--- NOTE | 2019-03-31 06:52 | PN ---
Subjective Date of Service: 03/31/19 Interval History: overnight- had high blood pressure; given iv hydralazine; responded well VS stable; although hypertensive Has some nausea; no abdominal pain and vomiting tolerating clear liquid; Objective Active Medications: Chlorthalidone (Hygroton Tab*) 25 mg PO DAILY KARINA Hydralazine HCl (Apresoline Iv*) 5 mg IV SLOW PU Q6H PRN PRN Reason: Systolic Bp Greater Than:160 Last Admin: 03/30/19 22:03 Dose: 5 mg Hydromorphone HCl (Dilaudid Inj1s*) 0.5 mg IV SLOW PU Q4H PRN PRN Reason: PAIN - MODERATE Last Admin: 03/30/19 08:16 Dose: 0.5 mg Lactated Ringer's (Lactated Ringers 1000 Ml Bag*) 1,000 mls @ 125 mls/hr IV PER RATE KARINA Last Admin: 03/30/19 23:48 Dose: 125 mls/hr Ondansetron HCl (Zofran Inj*) 4 mg IV Q4H PRN PRN Reason: NAUSEA/VOMITING Last Admin: 03/30/19 22:03 Dose: 4 mg Pantoprazole Sodium (Protonix Tab*) 40 mg PO BID KARINA Prochlorperazine Edisylate (Compazine Inj*) 10 mg IV Q6H PRN PRN Reason: NAUSEA/VOMITING Last Admin: 03/30/19 15:36 Dose: 10 mg Vital Signs - 8 hr 03/31/19 03/31/19 00:35 02:50 Temperature 98.1 F 97.5 F Pulse Rate 76 101 Respiratory 20 15 Rate Blood Pressure 155/103 150/106 (mmHg) O2 Sat by Pulse 97 98 Oximetry Oxygen Devices in Use Now: None Exam: Patient is sitting on a bed. HEENT: Normocephalic and atraumatic. Sclera anicteric Lungs: clear Heart: S1/S2 heard with no murmur Abdomen: Soft and mild tenderness on epigastrium. Normal BS heard Extremity: Normal neuro: alert, consious and oriented Result Diagrams: 03/31/19 06:25 03/31/19 12:04 Assess/Plan/Problems-Billing Assessment: 49 y/o F with hypertension and recent cholecystectomy(on 03/20) presented with subacute abdominal pain, nausea and vomiting. Found to have leucocytosis and hypokalemia and lactic acidosis(resolved). Found to have erosive esophagitis and gastric ulcer and duodenal erosions.On pantoprazole - Patient Problems (1) Peptic ulcer disease Current Visit: Yes Status: Acute Code(s): K27.9 - PEPTIC ULC, SITE UNSP, UNSP AC OR CHR, W/O HEMOR OR PERF SNOMED Code(s): 96469050 Comment: Found on EGD presented with abd pain, nausea and vomiting. US and Ct abdomen and HIDA scan negative Plan: pantoprazole 40 mg BID zofran iv repeat EGD in 3 months Outpatint colonoscopy gastrin level pending (2) Hypertension Current Visit: Yes Status: Acute Code(s): I10 - ESSENTIAL (PRIMARY) HYPERTENSION SNOMED Code(s): 53634133 Comment: chlorthalidone stopped started on amlodipine (3) Hypokalemia Current Visit: Yes Status: Acute Code(s): E87.6 - HYPOKALEMIA SNOMED Code( s): 74025975 Comment: possibly due to vomiting and decreased intake normalizing; after KCL (4) DVT prophylaxis Current Visit: Yes Status: Acute Code(s): Z29.9 - ENCOUNTER FOR PROPHYLACTIC MEASURES, UNSPECIFIED SNOMED Code(s): 756958176 Comment: On SCD (5) Full code status Current Visit: Yes Status: Acute Code(s): Z78.9 - OTHER SPECIFIED HEALTH STATUS SNOMED Code(s): 108758040 Status and Disposition: Inpatient probable d/c if tolerates food Attending: Dorothy Rothman Attestation Documenting Resident: Rod Crandall Supervising Physician: Dorothy Rothman Attending/Supervising Physician Comment: Presented with n/v and abd pain several days after cholecystectomy. HIDA without bile leak. EGD with ulcer, thought likely to be cause of patient's symptoms. Still with difficulty tolerating PO. High anti-emetic use. GI following. Possible component of cannabinoid hyperemesis syndrome, as pt reports nausea better with hot shower, but pt denies recent use. Attestation: This service has been performed in part by a resident under the direction of a teaching physician.I, Dorothy Rothman, performed the service, or was physically present during the critical, or pop portions of the service, furnished by the resident. I participated in the management of the patient.
[2019-03-31 07:07] LABS: BUN/Creatinine Ratio 3.8 (8-20); Calcium 9.5 mg/dL (8.6-10.3); EGFR African American 94.2 (>60); EGFR Non-African American 77.9 (>60)
[2019-03-31] MEDS ORDERED: Potassium Chlor TAB* 20 MEQ TAB.ER PO ONE ×2 (07:47→20:00)
[2019-03-31 08:06] LABS: Magnesium 1.9 mg/dL (1.9-2.7)
[2019-03-31] MEDS ORDERED: Magnesium Sulfate 1 GM IV* 1 GM/100 ML BAG IV ONE (08:07)
--- NOTE | 2019-03-31 08:15 | PN ---
Hospitalist Progress Note Date of Service: 03/31/19 Subjective- Pt had no complaints of nausea, vomiting, or epigastric pain this morning. Pt feels much better. no overnight events Objective- General- comfortable appearing woman HEENT- no scleral icterus, normocephalic neck-no JVD Lungs- BL lungs are clear to auscultation. No wheezing, no rhonchi, no rales Heart- S1, S2, regular rate and rhythm abdomen- Soft and tender and painful on light palpation in RUQ. Pain on deep palpation of RLQ. Bowel sounds are normoactive. 4 surgical carranza on abdomen that are normal and healing. extremities- no cyanosis, clubbing, or edema WBC-16.2 RBC-5.12 platelet count- 523 neutrophils- 11.1 monocytes- 1.3 Pu=017 K+= 3.0 Cl= 96 BUN= 3 BUN/Creat= 3.8 rdhbhjk=011 EGD= E:erosive esophagitis w/ scant ulcer. No fresh or old blood G: small clean ulcer in body, no fresh blood, scant old blood in stomach D: Multiple erosions and duodenitis in bulb and c-loop. No fresh or old blood Assessment/Plan- This 49 yr old female with newly diagnosed HTN and recently performed cholecystectomy who presented with epigastric abdominal pain, nausea, and vomiting. Is now diagnosed with Peptic ulcer disease. No other past medical hx. 1.)Peptic ulcer disease -Pantoprazole Sodium 40mg BID KARINA -Ondansetron Hcl 4mg IV Q4H PRN and prochlorperazine Edisylate 10mg IV Q6H PRN -Gastrin Level-Pending -repeat EGD in 3 months -outpatient colonoscopy -Hydromorphone Hcl .5mg IV slow PU Q4H PRN 2.)Hypokalemia secondary to vomiting -replace with IV (lactated ringer's 1,000 mls @125 mls/hr IV per rate KARINA) 3.)Leukocytosis- likely due to hemoconcentration -should drop with IV fluids 4.) Hx of HTN -hold chlorthalidone bc pt cant handle PO -If BP>160-hydralazine 5 mg IV slow PU Q6H PRN 5.)DVT prophylaxis SCD's
[2019-03-31] MEDS: amLODIPine TAB* 5 MG PO SCH (08:56)
[2019-03-31] MEDS: Pantoprazole TAB * 40 MG TAB PO SCH ×2 (08:56→19:54)
[2019-03-31] MEDS ORDERED: Chlorthalidone TAB* 50 MG PO SCH (09:00)
[2019-03-31] MEDS ORDERED: Ondansetron TAB* 4 MG PO PRN (11:56)
[2019-03-31 12:43] LABS: BUN/Creatinine Ratio 3.6 (8-20); Calcium 9.8 mg/dL (8.6-10.3); EGFR African American 87.7 (>60); EGFR Non-African American 72.5 (>60); Potassium 3.3 mmol/L (3.5-5.0)
[2019-03-31] MEDS ORDERED: Ondansetron INJ* 2 MG/ML VIAL IV ONE (12:44)
[2019-03-31] MEDS ORDERED: Lorazepam PYXIS KEY PRN (12:53)
[2019-03-31] MEDS ORDERED: LORazepam INJ* 2 MG/ML 1 ML VIAL IV PUSH ONE (12:53)
--- NOTE | 2019-03-31 15:42 | PN ---
Progress Note - Progress Note Date of Service: 03/31/19 SOAP: Subjective: []no pain Objective: [] Temp Pulse Resp BP Pulse Ox 98.1 F 81 16 152/96 94 03/31/19 11:42 03/31/19 11:42 03/31/19 13:32 03/31/19 11:42 03/31/19 11:42 Laboratory Last Values WBC 16.2 10^3/uL (3.5-10.8) H 03/31/19 06:25 RBC 5.12 10^6 /uL (3.70-4.87) H 03/31/19 06:25 Hgb 15.4 g/dL (12.0-16.0) 03/31/19 06:25 Hct 45 % (35-47) 03/31/19 06:25 MCV 88 fL (80-97) 03/31/19 06:25 MCH 30 pg (27-31) 03/31/19 06:25 MCHC 34 g/dL (31-36) 03/31/19 06:25 RDW 15 % (10-15) 03/31/19 06:25 Plt Count 523 10^3/uL (150-450) H D 03/31/19 06:25 MPV 9.1 fL (7.4-10.4) 03/31/19 06:25 Neut % (Auto) 68.6 % 03/31/19 06:25 Lymph % (Auto) 21.3 % 03/31/19 06:25 [place] % (Auto) 8.3 % 03/31/19 06:25 Eos % (Auto) 0.6 % 03/31/19 06:25 Baso % (Auto) 1.2 % 03/31/19 06:25 Absolute Neuts (auto) 11.1 10^3/ul (1.5-7.7) H 03/31/19 06:25 Absolute Lymphs (auto) 3.4 10^3/ul (1.0-4.8) 03/31/19 06:25 Absolute Monos (auto) 1.3 10^3/ul (0-0.8) H 03/31/19 06:25 Absolute Eos (auto) 0.1 10^3/ul (0-0.6) 03/31/19 06:25 Absolute Basos (auto) 0.2 10^3/ul (0-0.2) 03/31/19 06:25 Absolute Nucleated RBC 0.0 10^3/ul 03/31/19 06:25 Nucleated RBC % 0.1 03/31/19 06:25 Sodium 132 mmol/L (135-145) L 03/31/19 12:04 Potassium 3.3 mmol/L (3.5-5.0) L 03/31/19 12:04 Chloride 94 mmol/L (101-111) L 03/31/19 12:04 Carbon Dioxide 28 mmol/L (22-32) 03/31/19 12:04 Anion Gap 10 mmol/L (2-11) 03/31/19 12:04 BUN 3 mg/dL (6-24) L 03/31/19 12:04 Creatinine 0.83 mg/dL (0.51-0.95) 03/31/19 12:04 Est GFR ( Amer) 87.7 (>60) 03/31/19 12:04 Est GFR (Non-Af Amer) 72.5 (>60) 03/31/19 12:04 BUN/Creatinine Ratio 3.6 (8-20) L 03/31/19 12:04 Glucose 113 mg/dL (70-100) H 03/31/19 12:04 Hemoglobin A1c 6.0 % (4.0-5.6) H 03/30/19 05:42 Lactic Acid 1.2 mmol/L (0.5-2.0) 03/30/19 05:42 Calcium 9.8 mg/dL (8.6-10.3) 03/31/19 12:04 Magnesium 1.9 mg/dL (1.9-2.7) 03/31/19 06:25 Total Bilirubin 0.60 mg/dL (0.2-1.0) 03/29/19 21:46 AST 28 U/L (13-39) 03/29/19 21:46 ALT 20 U/L (7-52) 03/29/19 21:46 Alkaline Phosphatase 101 U/L (34-104) 03/29/19 21:46 C-Reactive Protein 5.40 mg/L (<8.01) 03/29/19 21:46 Total Protein 7.8 g/dL (6.4-8.9) 03/29/19 21:46 Albumin 4.8 g/dL (3.2-5.2) 03/29/19 21:46 Globulin 3.0 g/dL (2-4) 03/29/19 21:46 Albumin/Globulin Ratio 1.6 (1-3) 03/29/19 21:46 Lipase 50 U/L (11.0-82.0) 03/29/19 21:46 Beta HCG, Quant 2.77 mIU/mL 03/29/19 21:46 Urine Color Straw 03/29/19 23:50 Urine Appearance Clear 03/29/19 23:50 Urine pH 7.0 (5-9) 03/29/19 23:50 Ur Specific Collins 1.011 (1.010-1.030) 03/29/19 23:50 Urine Protein Negative (Negative) 03/29/19 23:50 Urine Ketones 1+ (Negative) A 03/29/19 23:50 Urine Blood 1+ (Negative) A 03/29/19 23:50 Urine Nitrate Negative (Negative) 03/29/19 23:50 Urine Bilirubin Negative (Negative) 03/29/19 23:50 Urine Urobilinogen Negative (Negative) 03/29/19 23:50 Ur Leukocyte Esterase Negative (Negative) 03/29/19 23:50 Urine WBC (Auto) Trace(0-5/hpf) (Absent) 03/29/19 23:50 Urine RBC (Auto) Trace(0-2/hpf) (Absent) 03/29/19 23:50 Ur Squamous Epith Cells Present (Absent) A 03/29/19 23:50 Urine Bacteria Absent (Absent) 03/29/19 23:50 Urine Glucose Negative (Negative) 03/29/19 23:50 abdomen soft, incisions ok Assessment: []ulcer, improving clinically Plan: []cont same
[2019-03-31] MEDS ORDERED: Ondansetron INJ* 2 MG/ML VIAL IV PRN (16:49)
[2019-03-31] MEDS ORDERED: hydrALAZINE IV* 20 MG/ML VIAL IV SLOW PU PRN (17:32)
[2019-04-01 07:43] LABS: ABS Basophils 0.1 10^3/ul (0-0.2); ABS Eosinophils 0.1 10^3/ul (0-0.6); ABS Lymphocytes 3.2 10^3/ul (1.0-4.8); ABS Neutrophils 8.1 10^3/ul (1.5-7.7); Hematocrit 45 % (35-47); Hemoglobin 15.1 g/dL (12.0-16.0); Lymphocyte % 25.4 %; Mean Corpuscular HGB Conc 33 g/dL (31-36); Mean Corpuscular Hemoglobin 29 pg (27-31); Mean Corpuscular Volume 88 fL (80-97); Platelet Count 490 10^3/uL (150-450); Red Blood Count 5.12 10^6 /uL (3.70-4.87); Red Cell Distribution Width 15 % (10-15); White Blood Count 12.6 10^3/uL (3.5-10.8)
[2019-04-01 07:59] LABS: BUN/Creatinine Ratio 8.7 (8-20); Calcium 9.4 mg/dL (8.6-10.3); EGFR African American 77.9 (>60); EGFR Non-African American 64.4 (>60); Magnesium 2.2 mg/dL (1.9-2.7); Potassium 3.6 mmol/L (3.5-5.0)
--- NOTE | 2019-04-01 08:32 | PN ---
Subjective Date of Service: 04/01/19 Interval History: Unable to tolerate advancement of diet yesterday. [place] severely nauseous and anxious. BP under better control and no longer with electrolyte abnormalities after switching from chlorthalidone to amlodipine. Tolerated clears this AM and chose bland solid foods for lunch. Can go home if tolerated well. Pt in much better spirits. Objective Active Medications: Amlodipine Besylate (Norvasc Tab*) 5 mg PO DAILY [facility] Last Admin: 03/31/19 08:56 Dose: 5 mg Miscellaneous (Ativan Pyxis Yang) 1 ea N/A .ATIVAN IV YANG PRN PRN Reason: PYXIS YANG Ondansetron HCl (Zofran Inj*) 4 mg IV Q4H PRN PRN Reason: NAUSEA/VOMITING Last Admin: 03/31/19 17:00 Dose: 4 mg Pantoprazole Sodium (Protonix Tab*) 40 mg PO BID [facility] Last Admin: 03/31/19 19:54 Dose: 40 mg Vital Signs - 8 hr 04/01/19 03:15 Temperature 97.8 F Pulse Rate 85 Respiratory 16 Rate Blood Pressure 118/90 (mmHg) O2 Sat by Pulse 96 Oximetry Oxygen Devices in Use Now: None Appearance: well appearing, alert and interactive Eyes: No Scleral Icterus Ears/Nose/Mouth/Throat: Clear Oropharnyx, Mucous Membranes Moist Neck: NL Appearance and Movements; NL JVP, Trachea Midline Respiratory: Symmetrical Chest Expansion and Respiratory Effort, Clear to Auscultation Cardiovascular: NL Sounds; No Murmurs; No JVD, RRR Abdominal: NL Sounds; No Tenderness; No Distention, No Hepatosplenomegaly, - - surgical port sites c/d/i Lymphatic: No Cervical Adenopathy Extremities: No Edema Result Diagrams: 04/01/19 07:09 04/01/19 07:09 Microbiology and Other Data: Microbiology 03/30/19 12:08 Aerobic Blood Culture - Preliminary Blood Venous No Growth Day 1 Anaerobic Blood Culture - Preliminary No Growth Day 1 03/30/19 12:08 Aerobic Blood Culture - Preliminary Blood Venous No Growth Day 1 Anaerobic Blood Culture - Preliminary No Growth Day 1 03/29/19 23:50 Urine Culture - Final Urine 03/30/19 20:58 CLOtest - Final Gastric Antrum Assess/Plan/Problems-Billing Assessment: 49 y/o F with hypertension and recent cholecystectomy(on 03/20) presented with subacute abdominal pain, nausea and vomiting. Found to have leucocytosis and hypokalemia and lactic acidosis(resolved). Found to have erosive esophagitis and gastric ulcer and duodenal erosions.On pantoprazole - Patient Problems (1) Peptic ulcer disease Comment: Found on EGD presented with abd pain, nausea and vomiting. US and Ct abdomen and HIDA scan negative Plan: pantoprazole 40 mg BID zofran prn repeat EGD in 3 months Outpatint colonoscopy gastrin level pending (2) Hypertension Current Visit: Yes Status: Acute Code(s): I10 - ESSENTIAL (PRIMARY) HYPERTENSION SNOMED Code(s): 13073136 Comment: chlorthalidone stopped started on amlodipine, better control and now BMP normal (3) Hypokalemia Current Visit: Yes Status: Acute Code(s): E87.6 - HYPOKALEMIA SNOMED Code( s): 06501243 Comment: possibly due to vomiting and thiazide - repleted, DC'ed chlorthalidone (4) DVT prophylaxis Current Visit: Yes Status: Acute Code(s): Z29.9 - ENCOUNTER FOR PROPHYLACTIC MEASURES, UNSPECIFIED SNOMED Code(s): 082808449 Comment: On SCD (5) Full code status Current Visit: Yes Status: Acute Code(s): Z78.9 - OTHER SPECIFIED HEALTH STATUS SNOMED Code(s): 082735692 Status and Disposition: Inpatient probable d/c if tolerates food
--- NOTE | 2019-04-01 08:41 | PN ---
Progress Note - Progress Note Date of Service: 04/01/19 SOAP: Subjective: []did not tolerate diet advance Objective: [] Temp Pulse Resp BP Pulse Ox 97.8 F 85 16 118/90 96 04/01/19 03:15 04/01/19 03:15 04/01/19 03:15 04/01/19 03:15 04/01/19 03:15 Laboratory Last Values WBC 12.6 10^3/uL (3.5-10.8) H 04/01/19 07:09 RBC 5.12 10^6 /uL (3.70-4.87) H 04/01/19 07:09 Hgb 15.1 g/dL (12.0-16.0) 04/01/19 07:09 Hct 45 % (35-47) 04/01/19 07:09 MCV 88 fL (80-97) 04/01/19 07:09 MCH 29 pg (27-31) 04/01/19 07:09 MCHC 33 g/dL (31-36) 04/01/19 07:09 RDW 15 % (10-15) 04/01/19 07:09 Plt Count 490 10^3/uL (150-450) H 04/01/19 07:09 MPV 9.0 fL (7.4-10.4) 04/01/19 07:09 Neut % (Auto) 64.4 % 04/01/19 07:09 Lymph % (Auto) 25.4 % 04/01/19 07:09 [place] % (Auto) 8.3 % 04/01/19 07:09 Eos % (Auto) 1.0 % 04/01/19 07:09 Baso % (Auto) 0.9 % 04/01/19 07:09 Absolute Neuts (auto) 8.1 10^3/ul (1.5-7.7) H 04/01/19 07:09 Absolute Lymphs (auto) 3.2 10^3/ul (1.0-4.8) 04/01/19 07:09 Absolute Monos (auto) 1.0 10^3/ul (0-0.8) H 04/01/19 07:09 Absolute Eos (auto) 0.1 10^3/ul (0-0.6) 04/01/19 07:09 Absolute Basos (auto) 0.1 10^3/ul (0-0.2) 04/01/19 07:09 Absolute Nucleated RBC 0.0 10^3/ul 04/01/19 07:09 Nucleated RBC % 0.0 04/01/19 07:09 Sodium 133 mmol/L (135-145) L 04/01/19 07:09 Potassium 3.6 mmol/L (3.5-5.0) 04/01/19 07:09 Chloride 96 mmol/L (101-111) L 04/01/19 07:09 Carbon Dioxide 29 mmol/L (22-32) 04/01/19 07:09 Anion Gap 8 mmol/L (2-11) 04/01/19 07:09 BUN 8 mg/dL (6-24) 04/01/19 07:09 Creatinine 0.92 mg/dL (0.51-0.95) 04/01/19 07:09 Est GFR ( Amer) 77.9 (>60) 04/01/19 07:09 Est GFR (Non-Af Amer) 64.4 (>60) 04/01/19 07:09 BUN/Creatinine Ratio 8.7 (8-20) 04/01/19 07:09 Glucose 97 mg/dL (70-100) 04/01/19 07:09 Hemoglobin A1c 6.0 % (4.0-5.6) H 03/30/19 05:42 Lactic Acid 1.2 mmol/L (0.5-2.0) 03/30/19 05:42 Calcium 9.4 mg/dL (8.6-10.3) 04/01/19 07:09 Magnesium 2.2 mg/dL (1.9-2.7) 04/01/19 07:09 Total Bilirubin 0.60 mg/dL (0.2-1.0) 03/29/19 21:46 AST 28 U/L (13-39) 03/29/19 21:46 ALT 20 U/L (7-52) 03/29/19 21:46 Alkaline Phosphatase 101 U/L (34-104) 03/29/19 21:46 C-Reactive Protein 5.40 mg/L (<8.01) 03/29/19 21:46 Total Protein 7.8 g/dL (6.4-8.9) 03/29/19 21:46 Albumin 4.8 g/dL (3.2-5.2) 03/29/19 21:46 Globulin 3.0 g/dL (2-4) 03/29/19 21:46 Albumin/Globulin Ratio 1.6 (1-3) 03/29/19 21:46 Lipase 50 U/L (11.0-82.0) 03/29/19 21:46 Beta HCG, Quant 2.77 mIU/mL 03/29/19 21:46 Urine Color Straw 03/29/19 23:50 Urine Appearance Clear 03/29/19 23:50 Urine pH 7.0 (5-9) 03/29/19 23:50 Ur Specific [place] 1.011 (1.010-1.030) 03/29/19 23:50 Urine Protein Negative (Negative) 03/29/19 23:50 Urine Ketones 1+ (Negative) A 03/29/19 23:50 Urine Blood 1+ (Negative) A 03/29/19 23:50 Urine Nitrate Negative (Negative) 03/29/19 23:50 Urine Bilirubin Negative (Negative) 03/29/19 23:50 Urine Urobilinogen Negative (Negative) 03/29/19 23:50 Ur Leukocyte Esterase Negative (Negative) 03/29/19 23:50 Urine WBC (Auto) Trace(0-5/hpf) (Absent) 03/29/19 23:50 Urine RBC (Auto) Trace(0-2/hpf) (Absent) 03/29/19 23:50 Ur Squamous Epith Cells Present (Absent) A 03/29/19 23:50 Urine Bacteria Absent (Absent) 03/29/19 23:50 Urine Glucose Negative (Negative) 03/29/19 23:50 Assessment: []wbc improved not tolerating diet yet await advancement of diet Plan: []cont same
[2019-04-01] MEDS: amLODIPine TAB* 5 MG PO SCH (10:46)
[2019-04-01] MEDS: Pantoprazole TAB * 40 MG TAB PO SCH (10:46)
[2019-04-01 13:10] VITALS: BP 126/86
--- NOTE | 2019-04-01 14:05 | PN ---
Progress Note - Progress Note Date of Service: 04/01/19 Note: GI Follow up Patient seen and examined. Had some nausea and emesis yesterday. Did better with lunch today, a little early satiety but doing well. VS: 126/86, P-89, R-16, T-98.4 Gen: alert and oriented x 3, nad Heent: AT/NC, perrla, eomi, sclera anicteric, conjunctiva pink CVS: RRR s1s2 Resp: CTA b/l Abd: soft, NT, nd, bs+ Ext: no c/c/e Lab: Hgb 15 Gastrin: pending Impression Gastric ulcer and duodenal erosions Nausea/Emesis Post cholecystectomy Rec No NSAIDS PPI BID x 3months Discussed still unsure if this explains all the symptoms but it could. Gastrin level pending, may be more academic doubt ZES but she has no clear source with the absence of NSAIDs and H Pylori negative. Will repeat EGD in 3 months, if still symptomatic will get gastric emptying study. In addition given her colitis findings on CT at [facility] will plan colonoscopy in 3-4 weeks as outpatient. Needs BID PPI x 3months. Would d/c with zofran PRN. Will schedule colonoscopy and discuss how she is doing prior, does not need follow up in office unless worsening symptomatically. Jacinto Joy DO 04/01/19 1400
--- NOTE | 2019-04-01 17:49 | DS ---
DISCHARGE SUMMARY: DATE OF ADMISSION: 03/30/19 DATE OF DISCHARGE: 04/01/19 PRIMARY DIAGNOSES: 1. Erosive esophagitis and peptic ulcer disease. 2. Recent cholecystectomy. 3. Hypertension. PROCEDURES: Esophagogastroduodenoscopy on 03/30/19. DISCHARGE MEDICATIONS: 1. Amlodipine 5 mg nightly. 2. Pantoprazole 40 mg twice a day. 3. Ondansetron 4 mg sublingual every 6 hours as needed for nausea. HISTORY OF PRESENT ILLNESS: Ms. Doran is a 49-year-old woman with recent diagnosis of cholelithiasis, status post cholecystectomy 10 days prior to admission, who is presenting with acute onset of abdominal pain, nausea, and vomiting. She reports that 4 days after her procedure, so approximately 6 days prior to presentation, she had recurrence of her abdominal pain, nausea, and vomiting. She came to this ER and repeat imaging including CT scan and repeat ultrasound were unremarkable except for possible colitis. She was started on ciprofloxacin and Flagyl and discharged home, however, 2 days prior to presentation she had recurrence of vomiting accompanied by severe migraine, so she went to [facility], where she was given migraine treatment with nausea and pain medications and was again discharged back home. On day of presentation, she is having recurrence of her right upper quadrant abdominal pain associated with significant amounts of nausea and vomiting. Pain is described as 10/10, intense across the abdomen rating from the right to left accompanied by retching and vomiting. For the last 2 days, she has not been eating well and her pain is worse when she does attempt to eat. When she vomits , what comes up is mostly frothy bubbly liquid that she thinks looks like stomach acid without coffee grounds or hematemesis. She also experienced one episode of diarrhea in the last week. She felt feverish, but never had a temperature when tested on subsequent healthcare visit. HOSPITAL COURSE: In the ER, the patient was afebrile, although she did have a leukocytosis she was not continued on her home antibiotics given no evidence of colitis on repeat CT. Her leukocytosis down trended without antibiotic intervention. Surgery saw and evaluated the patient, who did not think her current presentation was from complication of the surgery. GI was also contacted and recommended a HIDA scan for possible bile leak. The patient was admitted to Medicine due to inability to tolerate p.o. requiring IV antiemetics. A HIDA scan was performed on day of admission and was without evidence of bile leak. The patient was still unable to tolerate oral food or medication, so she was taken for an EGD later on day of admission and this showed erosive esophagitis with a peptic ulcer, which was thought to be the cause of her presenting symptoms. She was started on a proton pump inhibitor and advanced to a clear liquid diet. Over the following day, the patient did have difficulty advancing her diet to regular foods with recurrence of severe nausea; however, by day of discharge the patient was able to advance diet to bland, was in much better spirits, had resolution of her abdominal pain with mild nausea and was eager to return home. Of note, throughout hospitalization the patient had a difficult to replete hypokalemia, this was thought to be from her chlorthalidone, so this was discontinued and she was switched to amlodipine with good blood pressure control and no further need for electrolyte repletion. PERTINENT STUDIES AND LABS ON DISCHARGE: WBC 12.6, hemoglobin 15, and platelet count decreased to 490, however, this is still elevated. Sodium 133 with potassium 3.6 and creatinine 0.92. UA unremarkable. Liver ultrasound on 03/29/19 significant for status post cholecystectomy with liver parenchyma showing homogenous echogenicity. The pancreas is not optimally visualized. Abdomen/pelvis CT with right adrenal nodule, cholecystectomy, and hysterectomy. Esophagogastroduodenoscopy with erosive esophagitis with scant ulceration and clean based ulcer within the gastric body. Biopsies were taken and later a gastrin level was drawn and is pending. HIDA scan was without evidence of bile leak identified. DISCHARGE PLAN: The patient is to establish care in the [facility] and she should have a repeat of her CBC given new thrombocytosis and leukocytosis that did not entirely resolve, although it did improve by day of discharge. She was without other signs of infection and had no fever throughout this admission and denied chills. She should also follow up with Dr. Joy in GI Clinic for a followup EGD in 3 months and she will have her gastrin level followed up at that time. She was educated to avoid NSAID use and she will remain on a proton inhibitor twice a day for the next 3 months. Given prior colitis on CT of [place], she will also have a colonoscopy in approximately 2 to 4 weeks as an outpatient. Her medications are to be continued as listed above with 1 more notable change, her home chlorthalidone was discontinued and switched to amlodipine given hyponatremia and hypokalemia throughout admission. She should eat healthy diet, low in processed food, resume activity as tolerated. She was educated on return precautions, which include but are not limited to recurrence of nausea and vomiting, not controlled by ondansetron or new symptoms of hematemesis melena or other GI hemorrhage DISPOSITION: Home. CONDITION: Good. TIME SPENT: Apparently 60 minutes was spent on discharge of this patient. More than of which was spent with care coordination at bedside and for interview and exam. [id number]/[facility] #: [id number] MTDD
== END 2019-04-01 15:25 | disposition home or self-care (01) | DRG 243 ==
LOC: ED 20:41 → MERGE 03-30 03:44 → MED 03-30 03:44
PROVIDERS: ADMIT Internal Medicine; ATTEND Internal Medicine
PROC: 0DD98ZX Extraction of Duodenum, Via Natural or Artificial Opening Endoscopic, Diagnostic (ICD-10-PCS; principal; 2019-03-30)
PROC: 0DD68ZX Extraction of Stomach, Via Natural or Artificial Opening Endoscopic, Diagnostic (ICD-10-PCS; 2019-03-30)
DX: K22.10 Ulcer of esophagus without bleeding (principal); E87.2 Acidosis; E87.6 Hypokalemia; K25.9 Gastric ulcer, unspecified as acute or chronic, without hemorrhage or perforation; I10 Essential (primary) hypertension; K26.9 Duodenal ulcer, unspecified as acute or chronic, without hemorrhage or perforation; D72.829 Elevated white blood cell count, unspecified; K44.9 Diaphragmatic hernia without obstruction or gangrene; F12.90 Cannabis use, unspecified, uncomplicated; E66.9 Obesity, unspecified; Z90.49 Acquired absence of other specified parts of digestive tract; Z80.3 Family history of malignant neoplasm of breast; Z87.891 Personal history of nicotine dependence; Z79.899 Other long term (current) drug therapy; Z88.5 Allergy status to narcotic agent; Z68.35 Body mass index [BMI] 35.0-35.9, adult
CPT/HCPCS: 36415; 74177; 76705; 78226; 80048; 80053; 81003; 81015; 82941; 83036; 83605; 83690; 83735; 84702; 85025; 86140; 87040; 87077; 87086; 88305; 93005; 99156; 99157; 99284; A9270-GY; A9537; J0360; J0780; J1170; J1200; J2060; J2250; J2405; J3010; J3475; J3480; Q9967

== ENCOUNTER 2019-04-02 20:36 | Emergency (ER) | payer MEDICAID ==
[2019-04-02 22:33] VITALS: BP 118/88
[2019-04-02 22:50] LABS: ABS Basophils 0.1 10^3/ul (0-0.2); ABS Eosinophils 0.1 10^3/ul (0-0.6); ABS Lymphocytes 2.3 10^3/ul (1.0-4.8); ABS Monocytes 1.2 10^3/ul (0-0.8); ABS Neutrophils 12.6 10^3/ul (1.5-7.7); Eosinophil % 0.8 %; Hematocrit 43 % (35-47); Hemoglobin 14.4 g/dL (12.0-16.0); Lymphocyte % 14.2 %; Mean Corpuscular HGB Conc 34 g/dL (31-36); Mean Corpuscular Hemoglobin 30 pg (27-31); Mean Corpuscular Volume 88 fL (80-97); Mean Platelet Volume 8.8 fL (7.4-10.4); Platelet Count 459 10^3/uL (150-450); Red Blood Count 4.89 10^6 /uL (3.70-4.87); Red Cell Distribution Width 15 % (10-15); White Blood Count 16.3 10^3/uL (3.5-10.8)
[2019-04-02 23:07] LABS: ALT 61 U/L (7-52); AST 142 U/L (13-39); Albumin 4.2 g/dL (3.2-5.2); Albumin/Globulin Ratio 1.7 (1-3); Alkaline Phosphatase 169 U/L (34-104); Anion Gap 7 mmol/L (2-11); BUN/Creatinine Ratio 19.6 (8-20); Blood Urea Nitrogen 18 mg/dL (6-24); C Reactive Protein 6.64 mg/L (<8.01); CO2 Carbon Dioxide 27 mmol/L (22-32); Calcium 9.2 mg/dL (8.6-10.3); Chloride 96 mmol/L (101-111); EGFR African American 77.9 (>60); EGFR Non-African American 64.4 (>60); Globulin 2.5 g/dL (2-4); Glucose 120 mg/dL (70-100); Potassium 3.3 mmol/L (3.5-5.0); Sodium 130 mmol/L (135-145); Total Protein 6.7 g/dL (6.4-8.9)
== END 2019-04-03 00:34 | disposition left against medical advice (07) ==
LOC: ED 20:36
DX: Z53.21 Procedure and treatment not carried out due to patient leaving prior to being seen by health care provider (principal); R10.9 Unspecified abdominal pain; R11.10 Vomiting, unspecified; Z88.5 Allergy status to narcotic agent
CPT/HCPCS: 36415; 80053; 83605; 83690; 85025; 86140; 99282

== ENCOUNTER 2019-04-03 13:24 | Inpatient (IN) | payer MEDICAID ==
[~2019-04-03 13:24] MED LIST: HYDROmorphone INJ1* 1 MG/ML SYRINGE ONE
[2019-04-03] MEDS ORDERED: NS 0.9% 1000 ML** 1,000 ML IV ONE ×2 (15:47→18:04)
[2019-04-03] MEDS ORDERED: Ondansetron INJ* 2 MG/ML VIAL IV ONE (15:47)
[2019-04-03 15:49] LABS: ABS Basophils 0.1 10^3/ul (0-0.2); ABS Eosinophils 0.2 10^3/ul (0-0.6); ABS Lymphocytes 1.1 10^3/ul (1.0-4.8); ABS Monocytes 1.4 10^3/ul (0-0.8); ABS Neutrophils 17.8 10^3/ul (1.5-7.7); Eosinophil % 0.8 %; Hematocrit 43 % (35-47); Hemoglobin 14.8 g/dL (12.0-16.0); Lymphocyte % 5.5 %; Mean Corpuscular HGB Conc 34 g/dL (31-36); Mean Corpuscular Hemoglobin 30 pg (27-31); Mean Corpuscular Volume 87 fL (80-97); Mean Platelet Volume 9.2 fL (7.4-10.4); Platelet Count 483 10^3/uL (150-450); Red Blood Count 4.94 10^6 /uL (3.70-4.87); Red Cell Distribution Width 14 % (10-15); White Blood Count 20.5 10^3/uL (3.5-10.8)
--- NOTE | 2019-04-03 15:49 | ED ---
Abdominal Pain/Female - HPI Summary HPI Summary: Pt is a 49 y/o F presenting to the ED for a chief complaint of upper abdominal pain that began on 04/02/2019. Pt rates the pain as 8/10. Pt was previously admitted and had surgery on 03/20/2019. She has not eaten since 04/01/2019 and admits nausea, vomiting, and back pain that radiates from the abdomen. Denies diarrhea or constipation. - History of Current Complaint Chief Complaint: EDAbdPain Stated Complaint: ABDOMINAL PAIN PER PT Time Seen by Provider: 04/03/19 15:37 Hx Obtained From: Patient Onset/Duration: Sudden Onset, Lasting Days, Still Present Timing: Days Severity Initially: Moderate Severity Currently: Severe Pain Intensity: 10 Pain Scale Used: 0-10 Numeric Location: Epigastric Radiates: Yes Radiates to: Back Aggravating Factor(s): Nothing Alleviating Factor(s): Nothing Associated Signs and Symptoms: Positive: Back Pain, Nausea, Vomiting. Negative : Constipation, Diarrhea Allergies/Adverse Reactions: Allergies Allergy/AdvReac Type Severity Reaction Status Date / Time morphine AdvReac Severe GI Upset Verified 04/02/19 20:42 PMH/Surg Hx/FS Hx/Imm Hx Previously Healthy: Yes Endocrine/Hematology History: Denies: Hx Anticoagulant Therapy, Hx Diabetes Cardiovascular History: Denies: Hx Hypercholesterolemia, Hx Hypertension, Hx Pacemaker/ICD Respiratory History: Reports: Hx Asthma History: Reports: Hx Kidney Infection - once 30 years ago Denies: Hx Dialysis, Hx Renal Disease Sensory History: Denies: Hx Contacts or Glasses, Hx Eye Prosthesis, Hx Legally Blind, Hx Deafness, Hx Hearing Aid Opthamlomology History: Denies: Hx Contacts or Glasses, Hx Eye Prosthesis, Hx Legally Blind Neurological History: Reports: Hx Headaches - comes with current illness Denies: Hx Dementia - Surgical History Surgery Procedure, Year, and Place: HYSTERECTOMY/BHAVNA Hx Anesthesia Reactions: No - N/V Infectious Disease History: No Infectious Disease History: Denies: Traveled Outside the [place] in Last 30 Days - Family History Known Family History: Positive: Other - breast cancer Negative: Diabetes - Social History Alcohol Use: None Hx Substance Use: Yes Substance Use Type: Reports: Marijuana Hx Tobacco Use: Yes Smoking Status (MU): Former Smoker Review of Systems Positive: Abdominal Pain - Epigastric, Vomiting, Nausea. Negative: Diarrhea, Other - constipation Positive: Myalgia - back pain All Other Systems Reviewed And Are Negative: Yes Physical Exam - Summary Physical Exam Summary: VITAL SIGNS: Reviewed. GENERAL: Patient is a well-developed and nourished FEMALE who is lying comfortable in the stretcher. Patient is not in any acute respiratory distress. In acute distress secondary to pain. HEAD AND FACE: No signs of trauma. No ecchymosis, hematomas or skull depressions. No sinus tenderness. EYES: PERRLA, EOMI x 2, No injected conjunctiva, no nystagmus. EARS: Hearing grossly intact. Ear canals and tympanic membranes are within normal limits. MOUTH: Oropharynx within normal limits. NECK: Supple, trachea is midline, no adenopathy, no JVD, no carotid bruit, no c- spine tenderness, neck with full ROM. CHEST: Symmetric, no tenderness at palpation. LUNGS: Clear to auscultation bilaterally. No wheezing or crackles. CVS: Regular rate and rhythm, S1 and S2 present, no murmurs or gallops appreciated. ABDOMEN: Soft. No signs of distention. No rebound, no masses palpated. Bowel sounds are normal. Right epigastric tenderness with guarding, no rebound, actively vomiting. EXTREMITIES: FROM in all major joints, no edema, no cyanosis or clubbing. NEURO: Alert and oriented x 3. No acute neurological deficits. Speech is normal and follows commands. SKIN: Dry and warm. Triage Information Reviewed: Yes Vital Signs On Initial Exam: Initial Vitals Temp Pulse Resp BP Pulse Ox 98.7 F 97 22 141/101 100 04/03/19 13:30 04/03/19 13:30 04/03/19 13:30 04/03/19 13:30 04/03/19 13:30 Vital Signs Reviewed: Yes Diagnostics - Vital Signs Vital Signs Temp Pulse Resp BP Pulse Ox 04/03/19 14:34 98.2 F 96 32 166/125 98 04/03/19 13:30 98.7 F 97 22 141/101 100 - Laboratory Result Diagrams: 04/04/19 06:32 04/04/19 06:32 Lab Statement: Any lab studies that have been ordered have been reviewed, and results considered in the medical decision making process. - Radiology Abdomen X-ray Radiology Interpretation Completed By: Radiologist Summary of Radiographic Findings: Abdomen X-ray IMPRESSION: #. No acute abdominal pelvic pathologic process evident. Reviewed by ED physician. - EKG 14:43 Cardiac Rate: NL - 86 BPM EKG Rhythm: Sinus Rhythm ST Segment: Normal Ectopy: None EKG Comparison: No Significant Change Summary of EKG Findings: EKG at 14:43 shows 86 BPM with sinus rhythm, no STEMI, similar to 03/29/2019. Reviewed and interpreted by ED physician. Abdominal Pain Fem Course/Dx - Course Course Of Treatment: This patient is a 49-year-old female who presents to the emergency department with a chief complaint of having severe epigastric and right upper quadrant pain. The patient reports that she had a cholecystectomy on March 19 certified pathology assistant the patient is having severe pain. The patient was admitted to the hospital for similar symptoms, where she was seen by Dr. Joy from GI. He did an endoscopy from which she suffered multiple ulcers and was diagnosed with PUD. She reports that she was discharged home, the pain never resolved, and now she continues to have nausea and vomiting. She reports that the pain is 9/10. In the physical exam the patient has epigastric and right upper quadrant tenderness. Mild guarding no rebound. In the ED course the patient was given Zofran for nausea and vomiting, IV fluids, fentanyl for the pain. I discussed the case with Jason Arroyo physician certified pathology assistant from Dr. Whitt and he recommends no CT since the patient has multiple CT within 2 weeks. The patient continues to have pain therefore the patient was given an additional dose of fentanyl and Reglan for nausea and vomiting. I discussed the case with Dr. Joy from GI and he recommends an MRCP and admission of the patient to the hospital services. He will consult for the patient tomorrow morning. Blood work shows WBC of 20.5, platelets 483, absolute neutrophils 17.8 , sodium 133, potassium 3.2, chloride 97, anion gap 13, glucose 178, total bili 3.9, AST 423, ALT 197, alkaline phosphatase is 290. Lipase is only 13. Urinalysis is negative for UTI. In the ED course and the patient was started with Zosyn and IV fluids since the patient has increased levels. I also gave the patient potassium chloride. I discussed the case with Dr. Valadez however she declined admission until surgery consulted the patient. Therefore, I discussed my physical exam and findings with Dr. Whitt from the surgery and he came and assessed the patient. He doesnt think that the patient has a surgical abdomen and he does not recommend another CT of the abdomen and pelvis since the patient had already to CTs in the last week. I discussed the case again with Dr. Joy and he recommends the MRCP and admission to the hospitalist services. Therefore, I discussed the findings and plan with Dr. Manuel from the hospital services and she accepted the patient for admission. The patient is hemodynamically stable alert and oriented 3. - Diagnoses Provider Diagnoses: Abdominal pain, Nausea and vomiting - Provider Notifications Discussed Care Of Patient With: Tanya Manuel Time Discussed With Above Provider: 18:22 Instructed by Provider To: Admit As Inpatient Discharge ED - Sign-Out/Discharge Documenting (check all that apply): Patient Departure - Discharge Plan Condition: Stable Disposition: ADMITTED TO [facility] - Billing Disposition and Condition Condition: STABLE Disposition: Admitted to [facility] - Attestation Statements Document Initiated by Scribe: Yes Documenting Scribe: Gemma Garcia Provider For Whom Ioana is Documenting (Include Credential): Cordell Paul MD. Scribe Attestation: I, Gemma Garcia, scribed for Cordell Paul MD. on 04/04/19 at 0740. Scribe Documentation Reviewed: Yes Provider Attestation: The documentation as recorded by the scribe, Gemma Garcia accurately reflects the service I personally performed and the decisions made by me, Cordell Paul MD. Status of Scribe Document: Viewed Consult Consult: At 17:44, I spoke with Dr. Whitt who will be coming to assess the pt. At 17:56, I discussed with Dr. Whitt who thinks that the pt does not need a CT scan or that the pt is surgical. At 18:[address] Manuel who agrees to admit the pt
[2019-04-03] MEDS ORDERED: Pantoprazole IV* 40 MG IV ONE (15:50)
[2019-04-03] MEDS ORDERED: fentaNYL* 50 MCG/ML 2 ML VIAL (100 MCG VIAL) IV SLOW PU ONE ×2 (15:59→16:58)
[2019-04-03 16:17] LABS: Albumin 4.4 g/dL (3.2-5.2); Albumin/Globulin Ratio 1.6 (1-3); BUN/Creatinine Ratio 15.4 (8-20); C Reactive Protein 5.78 mg/L (<8.01); Calcium 9.6 mg/dL (8.6-10.3); EGFR African American 78.9 (>60); EGFR Non-African American 65.2 (>60); Globulin 2.7 g/dL (2-4); Potassium 3.2 mmol/L (3.5-5.0); Total Bilirubin 3.9 mg/dL (0.2-1.0); Total Protein 7.1 g/dL (6.4-8.9)
[2019-04-03] MEDS ORDERED: Metoclopramide IV* 5 MG/ML 2 ML VIAL IV SLOW PU ONE (16:58)
[2019-04-03] MEDS ORDERED: Piperacillin/Tazobac ADVAN(*) 3.375 GM in NS 0.9% 100 ML* 100 ML IVPB ONE (18:04)
[2019-04-03 18:15] LABS: Urine Appearance Clear; Urine Bilirubin Negative (Negative); Urine Blood Negative (Negative); Urine Color Yellow; Urine Glucose 2+(150 mg/dL) (Negative); Urine Ketones 1+ (Negative); Urine Nitrite Negative (Negative); Urine Protein Negative (Negative); Urine Specific Gravity 1.008 (1.010-1.030); Urine Urobilinogen Negative (Negative)
[2019-04-03] MEDS ORDERED: PROCHLORPERAZINE INJ 5 MG/ML 2 ML VIAL IV PRN (18:58)
[2019-04-03] MEDS ORDERED: Enoxaparin(*) 40 MG/0.4 ML SYR SUBCUT SCH (19:00)
[2019-04-03 19:13] LABS: Magnesium 1.9 mg/dL (1.9-2.7)
[2019-04-03] MEDS ORDERED: Zosyn per Pharmacy* NOTE FOLLOW UP PRN (19:51)
[2019-04-03] MEDS: HYDROmorphone INJ* 0.5 MG/0.5 ML SYRINGE IV SLOW PU PRN ×2 (19:58→23:49)
[2019-04-03] MEDS: KCL 10 MEQ/50 ML IVPREMIX* 10 MEQ/50 ML BAG IV SCH ×3 (19:59→23:58)
[2019-04-03] MEDS: hydrALAZINE IV* 20 MG/ML VIAL IV SLOW PU PRN (21:10)
[2019-04-03] MEDS: NS 0.9% 1000 ML** 1,000 ML IV SCH (21:24)
--- NOTE | 2019-04-03 21:34 | PN ---
Progress Note - Progress Note Date of Service: 04/03/19 Note: Pt seen in ED. She is s/p lap mejia on 03/18/19 and recently dx'd with PUD, discharged on 04/01. She presented to ED with abd pain yesterday but left after feeling better. She returned today with abdominal pain radiating to her back, N /V and reporting dark urine. Labs notable for leukocytosis and increased LFTs with T. bilirubin=3.9. Vital Signs Temp 98.6 F 04/03/19 21:02 Pulse 88 04/03/19 21:02 Resp 17 04/03/19 21:02 BP 173/101 04/03/19 21:02 Pulse Ox 96 04/03/19 21:02 Gen: Ill appearing, jaundiced. Abd: incisions well healed without erythema; soft and mildly tender in RUQ Laboratory Results - last 24 hr 04/03/19 04/03/19 04/03/19 15:40 15:40 18:06 WBC 20.5 H RBC 4.94 H Hgb 14.8 Hct 43 MCV 87 MCH 30 MCHC 34 RDW 14 Plt Count 483 H MPV 9.2 Neut % (Auto) 86.7 Lymph % (Auto) 5.5 [place] % (Auto) 6.7 Eos % (Auto) 0.8 Baso % (Auto) 0.3 Absolute Neuts (auto) 17.8 H Absolute Lymphs (auto) 1.1 Absolute Monos (auto) 1.4 H Absolute Eos (auto) 0.2 Absolute Basos (auto) 0.1 Absolute Nucleated RBC 0.0 Nucleated RBC % 0.0 Sodium 133 L Potassium 3.2 L Chloride 97 L Carbon Dioxide 23 Anion Gap 13 H BUN 14 Creatinine 0.91 Est GFR ( Amer) 78.9 Est GFR (Non-Af Amer) 65.2 BUN/Creatinine Ratio 15.4 Glucose 178 H Lactic Acid Calcium 9.6 Magnesium 1.9 Total Bilirubin 3.90 H D AST 423 H ALT 197 H Alkaline Phosphatase 290 H C-Reactive Protein 5.78 Total Protein 7.1 Albumin 4.4 Globulin 2.7 Albumin/Globulin Ratio 1.6 Lipase 13 Urine Color Yellow Urine Appearance Clear Urine pH 7.0 Ur Specific Jerome 1.008 L Urine Protein Negative Urine Ketones 1+ A Urine Blood Negative Urine Nitrate Negative Urine Bilirubin Negative Urine Urobilinogen Negative Ur Leukocyte Esterase Negative Urine Glucose 2+(150 mg/dl) A 04/03/19 19:08 WBC RBC Hgb Hct MCV MCH MCHC RDW Plt Count MPV Neut % (Auto) Lymph % (Auto) [place] % (Auto) Eos % (Auto) Baso % (Auto) Absolute Neuts (auto) Absolute Lymphs (auto) Absolute Monos (auto) Absolute Eos (auto) Absolute Basos (auto) Absolute Nucleated RBC Nucleated RBC % Sodium Potassium Chloride Carbon Dioxide Anion Gap BUN Creatinine Est GFR ( Amer) Est GFR (Non-Af Amer) BUN/Creatinine Ratio Glucose Lactic Acid 0.8 Calcium Magnesium Total Bilirubin AST ALT Alkaline Phosphatase C-Reactive Protein Total Protein Albumin Globulin Albumin/Globulin Ratio Lipase Urine Color Urine Appearance Urine pH Ur Specific Jerome Urine Protein Urine Ketones Urine Blood Urine Nitrate Urine Bilirubin Urine Urobilinogen Ur Leukocyte Esterase Urine Glucose A/P: CBD obstruction likely delayed presentation due to retained gallstone. MRCP ordered and per my review there is a filling defect in the CBD. She will need ERCP.
[2019-04-03] MEDS ORDERED: Heparin VIAL(*) 5000 UNITS/ML VIAL (FIVE THOUSAND) SUBCUT SCH (22:00)
--- NOTE | 2019-04-03 22:26 | HP ---
HISTORY AND PHYSICAL: DATE OF ADMISSION: 04/03/19 PRIMARY CARE PROVIDER: None. ATTENDING PHYSICIAN: Dr. Tanya Meeks.* (DICTATED BY ESTEFANI DELGADO NP) CHIEF COMPLAINT: Abdominal pain and nausea. HISTORY OF PRESENT ILLNESS: Ms. Doran is a 49-year-old woman with history of hypertension and recent cholecystectomy, who presented to the emergency room today with 2 days of abdominal pain, nausea, and vomiting. The patient was hospitalized at this facility from 03/30/19 to 04/01/19 for abdominal pain. At that point, she had imaging including a liver ultrasound and abdomen pelvis CT, HIDA scan and an EGD. Remarkable findings were erosive esophagitis and peptic ulcer disease. The patient was discharged on 04/01/19 and felt well that day and that night she had steak, quarter bowl of mushroom and squash for dinner and awoke at 5:30 in the morning with emesis and abdominal pain. The abdominal pain waxes and wanes and can be as bad as 10/10 and can completely disappear at times, nothing makes the pain better or worse. She did present to the emergency room yesterday on 04/02/19 because of this pain, nausea, and vomiting , though the ER was quite busy and she was not seen in a timely manner and so she chose to leave without being seen by a physician. She presented to the emergency room again today with the same symptoms. She woke at 8:30 this morning and symptoms are consistent with those that she had yesterday, they are not any better or worse. She denies any chest pain, diaphoresis, shortness of breath or dizziness. In the emergency room, the patient had an abdominal x-ray, which showed no acute findings. The patient was seen in the emergency room by Dr. Whitt from surgery who did not feel as though the patient had a surgical abdomen and did not recommend another CT of the abdomen and pelvis. The case was also discussed with Dr. Joy, who recommended an MRCP and admission to the hospital. According to the patient's nurse, the patient drank water out of the sink in the room and therefore MRCP has been delayed. The hospitalist service was asked to evaluate for admission. PAST MEDICAL HISTORY: 1. Hypertension. PAST SURGICAL HISTORY: 1. Cholecystectomy on 03/20/19. 2. section. 3. Hysterectomy with bilateral salpingo-oophorectomy. 4. Tonsillectomy. 5. Right wrist ganglion cyst removal. HOME MEDICATIONS: 1. Amlodipine 5 mg p.o. daily. 2. Pantoprazole 40 mg p.o. b.i.d. 3. Ondansetron 4 mg sublingual q.6 hours p.r.n. nausea and vomiting. ALLERGIES: MORPHINE. FAMILY HISTORY: Father's history is unknown. The patient's mother had breast cancer and at the age of 52. SOCIAL HISTORY: The patient recently quit smoking. She denies any alcohol or recreational drug use. She lives alone. The patient's friend Vale Gonzalez will be her surrogate decision maker in the event she is unable to make her own decisions. REVIEW OF SYSTEMS: A 11-point review of systems was performed and all the pertinent positive and negative findings are in the HPI. All other systems are negative. PHYSICAL EXAMINATION GENERAL: Ms. Doran is a well-developed, well-nourished, middle aged white woman lying in apparent pain. She appears her stated age. VITAL SIGNS: Temp 98.2, heart rate 82, respiratory rate 20, oxygen saturation 98% on room air, and blood pressure 169/113. HEENT: Head is atraumatic, normocephalic. Visual flaherty are grossly intact. Oral mucous membranes are slightly dry. NECK: Trachea midline. No lymphadenopathy. RESPIRATORY: Symmetrical chest expansion. Lungs are clear to auscultation throughout. No rhonchi, wheezes or rubs. CARDIOVASCULAR: Regular rate and rhythm. S1, S2 present. No murmurs, rubs or gallops. ABDOMEN: Soft, tender to palpation to the epigastric area in the right upper quadrant, otherwise nontender. Bowel sounds are severely hypoactive. NEUROLOGIC: Awake, alert and oriented x4. Moves all extremities. DIAGNOSTIC STUDIES/LAB DATA: WBC 20.5, RBC 4.94, hemoglobin 14.8, hematocrit 43 , platelets 483. Sodium 133, potassium 3.2, chloride 97, carbon dioxide 23, BUN 14, creatinine 0.91, glucose 178, total bili 3.9, AST 423, ALT 197, alk phos 290, lipase 13. Urinalysis remarkable for glucose and ketones. EKG shows normal sinus rhythm with a rate of 86, QTc 442, no ischemic changes. Abdomen x-ray reads as no acute abdominopelvic pathologic process evident. ASSESSMENT AND PLAN: Ms. Doran is a 49-year-old female with past medical history of hypertension and recent cholecystectomy who presents to the emergency room today with abdominal pain, nausea, and vomiting and was found to have an elevated liver function tests. The patient will be admitted inpatient for: 1. Abdominal pain with elevated liver function tests. The abdominal pain is mostly in the right upper quadrant and with the elevated liver function tests, this is highly suspicious for a retained gallstone. Again, the case has been discussed with Surgery, who was not concerned about any surgical process and was discussed with GI, who recommended an MRCP. The patient will have the MRCP tonight in approximately 40 minutes. The patient will be seen by Dr. Simpson tomorrow, who does have the capability of performing an ERCP if necessary. In the meantime, I will keep the patient on Zosyn. She was given 1 dose in the emergency room and I will continue this and hydration with IV fluids. I have ordered Dilaudid for pain and Zofran and Compazine for nausea and vomiting. I will recheck a CBC and CMP in the morning to reassess white count and liver function tests. The patient will remain n.p.o. 2. Hypokalemia. The patient did have some mild hypokalemia with potassium of 3.2. She has been ordered 20 mEq potassium by the ED physician and again we will recheck potassium in the morning. 3. Hypertension. The patient is significantly hypertensive at this point, which very likely secondary to pain. She is n.p.o. at this point, so I have ordered hydralazine for systolic pressure over 160. I would hope that once we get her pain under control, her blood pressure will also improve. 4. FEN. The patient will be maintained on normal saline while n.p.o. Again, potassium is being repleted and she will be n.p.o. 5. Code status. The patient will be a full code. 6. DVT prophylaxis. According DVT risk assessment, the patient scores a 3, making her high risk. I have ordered 1 dose of heparin tonight, though we will not continue heparin in the morning in the event she needs to undergo a procedure. TIME SPENT: Approximately 50 minutes were spent on this admission, greater than half of that time, spent face to face with the patient obtaining my history , performing my physical exam and reviewing the plan of care. The case has been reviewed with my attending, Dr. Meeks who is in agreement with the plan of care. ESTEFANI DELGADO, VANI [id number]/[facility] #: [id number] PIA
[2019-04-03] MEDS ORDERED: Piperacillin/Tazobac ADVAN(*) 3.375 GM in NS 0.9% 100 ML* 100 ML IVPB SCH (22:34)
[2019-04-03] MEDS: Ondansetron INJ* 2 MG/ML VIAL IV PRN (23:14)
[2019-04-04] MEDS: KCL 10 MEQ/50 ML IVPREMIX* 10 MEQ/50 ML BAG IV SCH ×2 (00:57→00:58)
[2019-04-04] MEDS: HYDROmorphone INJ* 0.5 MG/0.5 ML SYRINGE IV SLOW PU PRN ×3 (03:37→12:46)
[2019-04-04] MEDS: Piperacillin/Tazobac ADVAN(*) 3.375 GM in NS 0.9% 100 ML* 100 ML IVPB SCH ×3 (03:46→19:44)
[2019-04-04 06:50] LABS: ABS Basophils 0.1 10^3/ul (0-0.2); ABS Eosinophils 0.3 10^3/ul (0-0.6); ABS Lymphocytes 2.4 10^3/ul (1.0-4.8); ABS Neutrophils 11.2 10^3/ul (1.5-7.7); Eosinophil % 1.9 %; Hematocrit 39 % (35-47); Hemoglobin 13.3 g/dL (12.0-16.0); Lymphocyte % 16.1 %; Mean Corpuscular HGB Conc 34 g/dL (31-36); Mean Corpuscular Hemoglobin 30 pg (27-31); Mean Corpuscular Volume 88 fL (80-97); Mean Platelet Volume 8.9 fL (7.4-10.4); Nucleated Red Blood Cells % 0.1; Platelet Count 391 10^3/uL (150-450); Red Blood Count 4.42 10^6 /uL (3.70-4.87); Red Cell Distribution Width 15 % (10-15)
[2019-04-04] MEDS: Ondansetron INJ* 2 MG/ML VIAL IV PRN ×3 (07:04→18:16)
[2019-04-04 07:10] LABS: Albumin 3.8 g/dL (3.2-5.2); BUN/Creatinine Ratio 9.9 (8-20); Calcium 8.8 mg/dL (8.6-10.3); EGFR Non-African American 86.8 (>60); Globulin 1.9 g/dL (2-4); Potassium 3.6 mmol/L (3.5-5.0); Total Bilirubin 4.7 mg/dL (0.2-1.0); Total Protein 5.7 g/dL (6.4-8.9)
[2019-04-04] MEDS: NS 0.9% 1000 ML** 1,000 ML IV SCH ×2 (10:05→19:42)
[2019-04-04 10:32] LABS: INR 1.09 (0.82-1.09)
[2019-04-04] MEDS ORDERED: Indomethacin SUPP(NF) 50 MG SUP PR ONE (16:19)
[2019-04-04] MEDS ORDERED: fentaNYL* 50 MCG/ML 2 ML VIAL (100 MCG VIAL) ONE (16:29)
[2019-04-04] MEDS ORDERED: Midazolam* 1 MG/ML 2 ML VIAL (2 MG) ONE (16:29)
[2019-04-04] MEDS ORDERED: Propofol* 10 MG/ML 20 ML BTL ONE (16:44)
[2019-04-04] MEDS ORDERED: Phenylephrine 40 MCG/ML SYRINGE ONE (16:44)
[2019-04-04] MEDS ORDERED: Dexamethasone IV* 4 MG/ML 1 ML (4 MG) ONE (16:44)
[2019-04-04] MEDS ORDERED: Lidocaine 2% PF * 5 ML VIAL ONE (16:44)
[2019-04-04] MEDS ORDERED: Ondansetron INJ* 2 MG/ML VIAL ONE ×2 (16:44→18:14)
[2019-04-04] MEDS ORDERED: Succinylcholine* 20 MG/ML 10 ML VIAL ONE (16:44)
[2019-04-04] MEDS ORDERED: HYDROmorphone INJ1* 1 MG/ML SYRINGE IV PRN (17:36)
[2019-04-04] MEDS ORDERED: fentaNYL* 50 MCG/ML 2 ML VIAL (100 MCG VIAL) IV PRN (17:36)
[2019-04-04] MEDS ORDERED: Scopolamine 1.5 mg* PATCH TRANSDERM PRN (17:36)
[2019-04-04] MEDS ORDERED: Nalbuphine* 10 MG/ML 1 ML VIAL IV PRN (17:36)
[2019-04-04] MEDS ORDERED: DiMENhydriNATE IV* 50 MG/ML VIAL IV PUSH PRN (17:36)
[2019-04-04] MEDS ORDERED: Naloxone* 0.4 MG/ML 1 ML VIAL IV PRN (17:36)
--- NOTE | 2019-04-04 18:06 | PN ---
Subjective Date of Service: 04/04/19 Interval History: Patient seen and examined. Denies nausea or vomiting. States her pain is under control with current pain management. Pending ERCP this afternoon. No fevers or chills. No headache or chest pain. Objective Active Medications: Dimenhydrinate (Dramamine Iv*) 12.5 mg IV PUSH ONCE PRN PRN Reason: NAUSEA/VOMITING Fentanyl Citrate (Fentanyl*) 25 mcg IV Q3M PRN PRN Reason: PAIN - MODERATE Hydralazine HCl (Apresoline Iv*) 5 mg IV SLOW PU Q6H PRN PRN Reason: Systolic Bp Greater Than: 160 Last Admin: 04/03/19 21:10 Dose: 5 mg Hydromorphone HCl (Dilaudid Inj*) 0.5 mg IV SLOW PU Q4H PRN PRN Reason: PAIN - MODERATE Last Admin: 04/04/19 12:46 Dose: 0.5 mg Hydromorphone HCl (Dilaudid Inj1s*) 0.2 mg IV Q5M PRN PRN Reason: PAIN - SEVERE Sodium Chloride (Ns 0.9% 1000 Ml) 1,000 mls @ 100 mls/hr IV PER RATE [facility] Last Admin: 04/04/19 10:05 Dose: 100 mls/hr Piperacillin Sod/Tazobactam (Sod 3.375 gm/ Sodium Chloride) 100 mls @ 25 mls/ hr IVPB 0400,1200,2000 [facility] Last Admin: 04/04/19 11:31 Dose: 25 mls/hr Nalbuphine HCl (Nubain*) 5 mg IV Q6H PRN PRN Reason: NAUSEA/VOMITING Naloxone HCl (Narcan*) 0.08 mg IV Q2M PRN PRN Reason: severe induced resp depression Ondansetron HCl (Zofran Inj*) 4 mg IV Q4H PRN PRN Reason: NAUSEA/VOMITING Last Admin: 04/04/19 11:31 Dose: 4 mg Pharmacy Consult (Zosyn Per Pharmacy*) 1 note FOLLOW UP . PRN PRN Reason: PER PROTOCOL Pharmacy Profile Note (Scopolamine Patch Remove*) 1 note PATCH OFF Q72H ONE Stop: 04/07/19 17:38 Prochlorperazine Edisylate (Compazine Inj*) 10 mg IV Q6H PRN PRN Reason: NAUSEA/VOMITING Scopolamine (Transderm-Scop 1.5 Mg Patch*) 1 patch TRANSDERM Q72H PRN PRN Reason: Nausea/Vomiting Vital Signs - 8 hr 04/04/19 04/04/19 04/04/19 11:41 12:46 14:00 Temperature 97.4 F Pulse Rate 66 Respiratory 16 16 16 Rate Blood Pressure 118/73 (mmHg) O2 Sat by Pulse 96 Oximetry 04/04/19 04/04/19 04/04/19 15:17 17:31 17:33 Temperature 97.0 F 97.2 F Pulse Rate 68 95 85 Respiratory 16 14 Rate Blood Pressure 144/99 156/105 148/99 (mmHg) O2 Sat by Pulse 98 100 100 Oximetry 04/04/19 17:35 Temperature Pulse Rate Respiratory 16 Rate Blood Pressure (mmHg) O2 Sat by Pulse Oximetry Oxygen Devices in Use Now: None Appearance: alert, NAD Eyes: PERRLA Ears/Nose/Mouth/Throat: NL Teeth, Lips, Gums, - - dry oral mucosa Neck: NL Appearance and Movements; NL JVP, Trachea Midline Respiratory: Symmetrical Chest Expansion and Respiratory Effort, Clear to Auscultation Cardiovascular: NL Sounds; No Murmurs; No JVD, RRR Abdominal: - - mild tenderness upper epigastrum Extremities: No Edema Skin: No Rash or Ulcers Neurological: Alert and Oriented x 3 Nutrition: - - NPO Result Diagrams: 04/04/19 06:32 04/04/19 06:32 Diagnostic Imaging: Patient Name: ZOEY DELEON Medical Record#: [id number] Ordering Physician: Cordell Paul MD Acct.#: [id number] : 1970 Age: 49 Sex: F Location: SURGICAL STAY UNIT Exam Date: 04/03/191747 ADM Status: ADM IN Order Information: MRI CHOLANGIOGRAM (MRCP) Accession Number: [id number] CPT: 27347 PROCEDURE INFORMATION: Exam: MR Abdomen Without Contrast Exam date and time: 04/03/2019 8:40 PM Clinical history: 49 years old, female; Abdominal tenderness and nausea and vomiting; Acute; Prior surgery; Surgery date: <1 month; Surgery type: Cholecystectomy; Patient HX: PT has upper abdominal pain since 04/02 with nausea and vomiting. PT had gallbladder removed on 03/20/19 TECHNIQUE: Imaging protocol: MR of the abdomen without contrast. 3D rendering: MIP reconstructed images were created and reviewed. COMPARISON: GB SCAN NM HEPATOBIL VISUAL SCAN-HIDA 03/30/2019 9:58 AM FINDINGS: Liver: No mass. Gallbladder and bile ducts: The common bile duct measures 6 mm. There is a small filling defect in the distal common bile duct measuring approximately 3 mm likely represent a calculus. Status post cholecystectomy. Pancreas: Unremarkable. No ductal dilation. Spleen: Unremarkable. No splenomegaly. Adrenals: Unremarkable. No mass. Kidneys and ureters: Multiple right renal cyst, the largest measures 1.3 cm in the midpole of the right kidney. Stomach and bowel: Unremarkable. Intraperitoneal space: No fluid collection. Arteries: No abdominal aortic aneurysm. Bones/joints: Unremarkable. Soft tissues: Unremarkable. IMPRESSION: Small filling defect in the distal common bile tract representing a small calculus. To contact [facility] with a general question: [facility] - [phone] For direct physician to physician contact: Physician Hotline - [phone] [facility] ([facility] Facility ID #[id number]) Assess/Plan/Problems-Billing Assessment: This is a 49 year old female with lap mejia on 03/18/19 that presented to the ED with abdominal pain, dark urine, leukocytosis and elevated LFTs. - Patient Problems (1) Common bile duct (CBD) obstruction Code(s): K83.1 - OBSTRUCTION OF BILE DUCT SNOMED Code(s): 641628237 Comment: - Likely retained stone post cystectomy - MRCP with filling defect - Transaminitis noted, continue to follow LFTs - Pending ERCP today with Dr. Simpson - Continue NPO with IVF - Pain control (2) Hypertension Code(s): I10 - ESSENTIAL (PRIMARY) HYPERTENSION SNOMED Code(s): 05820477 Comment: - Stable on norvasc (3) Hypokalemia Code(s): E87.6 - HYPOKALEMIA SNOMED Code(s): 05381095 Comment: - Resolved (4) Peptic ulcer disease Code(s): K27.9 - PEPTIC ULC, SITE UNSP, UNSP AC OR CHR, W/O HEMOR OR PERF SNOMED Code(s): 51796504 Comment: - PPI (5) DVT prophylaxis Code(s): Z29.9 - ENCOUNTER FOR PROPHYLACTIC MEASURES, UNSPECIFIED SNOMED Code( s): 294938707 Comment: - SCDs (6) Full code status Code(s): Z78.9 - OTHER SPECIFIED HEALTH STATUS SNOMED Code(s): 763893469 Status and Disposition: Inpatient, dispo to home when medically stable.
[2019-04-04] MEDS ORDERED: hydrALAZINE IV* 20 MG/ML VIAL ONE (18:10)
[2019-04-04] MEDS: hydrALAZINE IV* 20 MG/ML VIAL IV SLOW PU PRN (18:11)
[2019-04-04] MEDS ORDERED: Nalbuphine* 10 MG/ML 1 ML VIAL ONE (18:18)
--- NOTE | 2019-04-04 19:23 | CONS ---
GASTROENTEROLOGY CONSULT: DATE: 04/04/19 CONSULTING PHYSICIANS: Dr. Tanya Meeks, Dr. Chiquita Colón. REASON FOR CONSULT: Upper abdominal pain 2 weeks after cholecystectomy, now with elevated liver function tests. HISTORY: This 49-year-old woman who recently moved from [place] to [facility] and who had her gallbladder out 2 weeks ago, has continued to have pain. During an admission last week, a complete imaging workup was negative and LFTs normal. Upper endoscopy showed a clean-based gastric ulcer and erosions in the duodenum. No significant NSAID history was obtained. The workup of that is continuing. She was actually just discharged on 04/01/19, but had recurring pain and came to the emergency room on 04/02/19. Before she could be evaluated, the pain relented and there was a considerable wait and she went back home. She came back to the emergency room again yesterday and this time blood work showed an elevation in LFTs and she was admitted. MRCP showed a common duct stone. The pain has waxed and waned since then and she has had multiple pain shots including several today. Her LFTs were up the most this morning. PAST MEDICAL HISTORY: 1. Status post hysterectomy and bilateral oophorectomy. 2. History of . 3. Cholecystectomy on 03/20/19. 4. Gastric ulcer - cause unclear. 5. Hypertension. OUTPATIENT MEDICATIONS: Cipro and Flagyl started empirically and she takes chlorthalidone 25 mg. ALLERGIES: MORPHINE causes nausea and vomiting. FAMILY HISTORY: Mother had breast cancer and at 52. SOCIAL HISTORY: She was originally from [facility], going to [employer]. 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 She moved back here in November. She has a daughter, who lives in [place]. REVIEW OF SYSTEMS: No history of seizure, syncope, cardiac disease, TN, CVA, hepatitis, jaundice, renal stones, hematuria. She has never had a colonoscopy. No history of psoriasis or other dermatological disease. EXAM: She is a healthy-appearing woman, minimally overweight, in no distress. There is borderline icterus. She is afebrile. She has no adenopathy. Her lungs are clear and heart sounds are normal. Breast and Pelvic Exams: Deferred. Abdomen is tender in the right upper quadrant, she is also generally touchy. The trocar wounds appear normal for their stage of healing. Rectal: Deferred. Extremities show no edema. LABS: Total bilirubin 4.70 this morning, ALT 283. IMPRESSION: Common bile duct stone 2 wks post cholecystectomy with a relatively slender duct. The situation was discussed in detail with the patient assisted by a diagram. All questions were answered. She had a second opportunity to discuss the situation. ERCP will proceed with indomethacin prophylaxis. There is no indication for an antibiotic right now. [id number]/[facility] #: [id number] [facility]
--- NOTE | 2019-04-04 21:49 | PRO ---
DATE: 04/04/19 - ROOM #[id number] REFERRING PHYSICIAN: Alexandro Sahu.* PROCEDURE: ERCP and sphincterotomy with balloon extraction of 3 to 4 mm distal common bile duct stone. INDICATION: This 49-year-old woman had cholecystectomy 14 days ago. She continued to have some pain though LFTs were normal. She was admitted and had a full workup including a nuclear medicine scan, CT scan, and repeat LFTs, which were again normal. Yesterday she came back to the emergency room yet again and this time LFTs were off, and MRCP showed a common duct stone. ENDOSCOPIST: Dr. Simpson. MEDICATIONS: Anesthesia per Dr. Hinojosa and then Dr. Liz. FINDINGS: She is a substantially overweight middle-aged woman, in no distress. She was positioned in the semi-prone position. She had been intubated. ERCP: Esophagus - 30% views were normal. Stomach - 70% views were normal. Previously noted gastritis and ulcer were not seen, though comprehensive views were not obtained. Duodeneum - The bulb and second through third portions were seen, 80%, and no abnormality noted. Papilla - Relatively small, with bile draining. It was symmetric. The sphincterotome inclined to a varying degree was used to probe the surface. Three or four preliminary passes were ineffective. Then slightly at 8:30 to 9 o 'clock orientation, with the wire protruding just a couple of millimeters, the cannula entered the common duct. Three high cannulation was obtained. The guidewire was placed into the liver and locked in place. A sphincterotomy was done at a noon orientation for about 9 or 10 mm. With the small papilla and the overhanging fold there was not much room for the sphincterotomy, though this was accomplished. Cholangiogram had shown a single stone. An exchange was made for a 9 to 12 balloon and this was brought through a 10.5 mm. The stone came through on the first withdrawal. There was minimal wisp of bleeding. A second passage of the balloon resulted in no further stones. A balloon occlusion cholangiogram was negative. Dye drained readily. The procedure was terminated. IMPRESSION: 1. Anatomically small papilla. 2. Status post sphincterotomy. 3. Common bile duct stone - now extracted. [id number]/[facility] #: [id number] [facility]
[2019-04-05] MEDS: NS 0.9% 1000 ML** 1,000 ML IV SCH ×2 (06:10→20:21)
[2019-04-05 10:10] LABS: ABS Basophils 0.1 10^3/ul (0-0.2); ABS Eosinophils 0.1 10^3/ul (0-0.6); ABS Lymphocytes 2.5 10^3/ul (1.0-4.8); ABS Neutrophils 10.6 10^3/ul (1.5-7.7); Eosinophil % 0.8 %; Hematocrit 38 % (35-47); Hemoglobin 12.5 g/dL (12.0-16.0); Lymphocyte % 17.5 %; Mean Corpuscular HGB Conc 33 g/dL (31-36); Mean Corpuscular Hemoglobin 30 pg (27-31); Mean Corpuscular Volume 89 fL (80-97); Platelet Count 365 10^3/uL (150-450); Red Blood Count 4.23 10^6 /uL (3.70-4.87); Red Cell Distribution Width 15 % (10-15); White Blood Count 14.4 10^3/uL (3.5-10.8)
[2019-04-05 10:31] LABS: Albumin 3.5 g/dL (3.2-5.2); Albumin/Globulin Ratio 1.7 (1-3); BUN/Creatinine Ratio 10.6 (8-20); Calcium 8.4 mg/dL (8.6-10.3); EGFR African American 114.2 (>60); EGFR Non-African American 94.4 (>60); Globulin 2.1 g/dL (2-4); Potassium 3.1 mmol/L (3.5-5.0); Total Bilirubin 0.9 mg/dL (0.2-1.0); Total Protein 5.6 g/dL (6.4-8.9)
--- NOTE | 2019-04-05 13:03 | PN ---
Progress Note - Progress Note Date of Service: 04/05/19 SOAP: Subjective: [] Pt S/P Lap Demetria 03/18, readmit for PUD with D/C 04/01, returned with Jaundice and MRCP finding of retained CBD stone. S/P ERCP and extraction of stone yesterday. Comfortable in bed now, Jaundice resolved, NAD Objective: [] HEENT: non icteric sclera Chest: CTA CVS: RRR ABD: soft, ND Incisions C/D/I Assessment: [] Clinically improved s/p ERCP with sphinterotomy and stone extraction Plan: [] F/U as scheduled
[2019-04-05] MEDS ORDERED: Potassium Chloride* LIQUID 20 MEQ/15 ML UDC PO ONE (15:40)
[2019-04-05] MEDS ORDERED: Potassium Chlor TAB* 20 MEQ TAB.ER PO ONE (16:29)
--- NOTE | 2019-04-05 16:51 | PN ---
Subjective Date of Service: 04/05/19 Interval History: Patient seen and examined. Tolerated sips of clears overnight and this morning with no nausea or pain. Overall feeling improved. Abdomen is sore, but acute pain is resolved. No nausea or fevers. Objective Active Medications: Hydralazine HCl (Apresoline Iv*) 5 mg IV SLOW PU Q6H PRN PRN Reason: Systolic Bp Greater Than: 160 Last Admin: 04/04/19 18:11 Dose: 5 mg Hydromorphone HCl (Dilaudid Inj*) 0.5 mg IV SLOW PU Q4H PRN PRN Reason: PAIN - MODERATE Last Admin: 04/04/19 12:46 Dose: 0.5 mg Sodium Chloride (Ns 0.9% 1000 Ml) 1,000 mls @ 100 mls/hr IV PER RATE [facility] Last Admin: 04/05/19 06:10 Dose: 100 mls/hr Ondansetron HCl (Zofran Inj*) 4 mg IV Q4H PRN PRN Reason: NAUSEA/VOMITING Last Admin: 04/04/19 18:16 Dose: 4 mg Prochlorperazine Edisylate (Compazine Inj*) 10 mg IV Q6H PRN PRN Reason: NAUSEA/VOMITING Last Admin: 04/04/19 20:28 Dose: 10 ml Vital Signs - 8 hr 04/05/19 04/05/19 04/05/19 11:58 15:42 16:00 Temperature 98.2 F 98.8 F Pulse Rate 71 71 Respiratory 16 16 Rate Blood Pressure 136/88 129/88 (mmHg) O2 Sat by Pulse 98 99 99 Oximetry Oxygen Devices in Use Now: None Appearance: alert, NAD Eyes: PERRLA Ears/Nose/Mouth/Throat: NL Teeth, Lips, Gums, Mucous Membranes Moist Neck: NL Appearance and Movements; NL JVP, Trachea Midline Respiratory: Symmetrical Chest Expansion and Respiratory Effort, Clear to Auscultation Cardiovascular: NL Sounds; No Murmurs; No JVD, RRR, No Edema Abdominal: NL Sounds; No Tenderness; No Distention Extremities: No Edema, No Clubbing, Cyanosis Skin: No Rash or Ulcers Neurological: Alert and Oriented x 3, NL Gait Nutrition: Taking PO's, - - tolerating FLD Result Diagrams: 04/05/19 09:42 04/05/19 09:48 Diagnostic Imaging: Patient Name: ZOEY DELEON Medical Record#: [id number] Ordering Physician: Cordell Paul MD Acct.#: [id number] : 1970 Age: 49 Sex: F Location: SURGICAL STAY UNIT Exam Date: 04/03/191747 ADM Status: ADM IN Order Information: MRI CHOLANGIOGRAM (MRCP) Accession Number: [id number] CPT: 79457 PROCEDURE INFORMATION: Exam: MR Abdomen Without Contrast Exam date and time: 04/03/2019 8:40 PM Clinical history: 49 years old, female; Abdominal tenderness and nausea and vomiting; Acute; Prior surgery; Surgery date: <1 month; Surgery type: Cholecystectomy; Patient HX: PT has upper abdominal pain since 04/02 with nausea and vomiting. PT had gallbladder removed on 03/20/19 TECHNIQUE: Imaging protocol: MR of the abdomen without contrast. 3D rendering: MIP reconstructed images were created and reviewed. COMPARISON: GB SCAN NM HEPATOBIL VISUAL SCAN-HIDA 03/30/2019 9:58 AM FINDINGS: Liver: No mass. Gallbladder and bile ducts: The common bile duct measures 6 mm. There is a small filling defect in the distal common bile duct measuring approximately 3 mm likely represent a calculus. Status post cholecystectomy. Pancreas: Unremarkable. No ductal dilation. Spleen: Unremarkable. No splenomegaly. Adrenals: Unremarkable. No mass. Kidneys and ureters: Multiple right renal cyst, the largest measures 1.3 cm in the midpole of the right kidney. Stomach and bowel: Unremarkable. Intraperitoneal space: No fluid collection. Arteries: No abdominal aortic aneurysm. Bones/joints: Unremarkable. Soft tissues: Unremarkable. IMPRESSION: Small filling defect in the distal common bile tract representing a small calculus. To contact [facility] with a general question: [facility] - [phone] For direct physician to physician contact: Physician Hotline - [phone] [facility] ([facility] Facility ID #[id number]) Assess/Plan/Problems-Billing Assessment: This is a 49 year old female with lap mejia on 03/18/19 that presented to the ED with abdominal pain, dark urine, leukocytosis and elevated LFTs. - Patient Problems (1) Common bile duct (CBD) obstruction Code(s): K83.1 - OBSTRUCTION OF BILE DUCT SNOMED Code(s): 962335231 Comment: - Likely retained stone post cystectomy - MRCP with filling defect - Transaminitis noted, LFTs trending down - s/p ERCP 04/04/19 with resolution of obstruction per notes - Diet being slowly advanced, pain improving - If continues to tolerate diet, will DC in AM - Continue NPO with IVF - Pain control (2) Hypertension Code(s): I10 - ESSENTIAL (PRIMARY) HYPERTENSION SNOMED Code(s): 85263976 Comment: - Stable on norvasc (3) Hypokalemia Code(s): E87.6 - HYPOKALEMIA SNOMED Code(s): 37037598 Comment: - Resolved (4) Peptic ulcer disease Code(s): K27.9 - PEPTIC ULC, SITE UNSP, UNSP AC OR CHR, W/O HEMOR OR PERF SNOMED Code(s): 45676909 Comment: - PPI (5) DVT prophylaxis Code(s): Z29.9 - ENCOUNTER FOR PROPHYLACTIC MEASURES, UNSPECIFIED SNOMED Code( s): 278985413 Comment: - SCDs (6) Full code status Code(s): Z78.9 - OTHER SPECIFIED HEALTH STATUS SNOMED Code(s): 917119310 Status and Disposition: Inpatient, discharge in AM if diet tolerated.
--- NOTE | 2019-04-05 16:57 | PN ---
Progress Note - Progress Note Date of Service: 04/05/19 Note: Gi Follow Up Patient seen and examined. NO pain or nausea or emesis. Doing well VS: 129/88, P-71, R-16, T- 98.8 Gen: alert and oriented x3, NAD HEENT; AT/NC, perrla, eomi, no jvp, sclera anicteric. CVS: RRR s1s2 Resp: cta b/l Abd: soft, nt, nd, bs+ Ext: no c/c/e Neuro: no asterixis. Lab: Bili 4.7->0.9 AST 398-> 103 ALT 283-> 178 Alk P 292->226 Imp: Choledocolithiasis s/p ERCP and stone extraction Jaundice: resolved Peptic ulcer disease Rec: Doing well post ERCP. Advance diet. Low fat. CMP next tuesday results to me. May be d/c home when tolerating diet. Needs 3 months of PPI for PUD Will plan EGD and colonoscopy as outpatient in 3 months for PUD and screening. May follow up in office if issues in interim. Jacinto Joy DO 04/05/19 [id number]
[2019-04-06] MEDS ORDERED: Ondansetron ODT TAB* 4 MG SL PRN (06:54)
[2019-04-06] MEDS ORDERED: oxyCODONE/Acetamin 5/325 MG* TAB PO PRN (06:54)
[2019-04-06 11:34] VITALS: BP 153/98
[2019-04-06 12:00] LABS: Hematocrit 40 % (35-47); Hemoglobin 13.4 g/dL (12.0-16.0); Mean Corpuscular HGB Conc 34 g/dL (31-36); Mean Corpuscular Hemoglobin 30 pg (27-31); Mean Corpuscular Volume 88 fL (80-97); Mean Platelet Volume 9.2 fL (7.4-10.4); Platelet Count 395 10^3/uL (150-450); Red Blood Count 4.47 10^6 /uL (3.70-4.87); Red Cell Distribution Width 15 % (10-15); White Blood Count 11.5 10^3/uL (3.5-10.8)
[2019-04-06 12:23] LABS: Albumin 3.8 g/dL (3.2-5.2); Albumin/Globulin Ratio 1.7 (1-3); Globulin 2.3 g/dL (2-4); Indirect Bilirubin 0.6 mg/dL (0.3-1.0); Total Bilirubin 0.8 mg/dL (0.2-1.0); Total Protein 6.1 g/dL (6.4-8.9)
--- NOTE | 2019-04-06 23:20 | DS ---
CC: Dr. Chiquita Colón, [facility]; Dr. Smith Simpson of GI; Dr. Jacinto Joy of GI; Dr. Whitt * DISCHARGE SUMMARY: DATE OF ADMISSION: 04/03/19 DATE OF DISCHARGE: 04/06/19 PRIMARY CARE PROVIDER: Dr. Chiquita Colón at [facility]. MY ATTENDING FOR TODAY: Dr. Colón.* (DICTATED BY SHARONA ALAN NP) HOSPITAL COURSE: Please refer to the admitting H and P on 04/03/19, but in short, Ms. Doran is a 49-year-old female patient that had a recent lap mejia in early March and then was subsequently hospitalized from 03/30/19 through 04/01/19 for recurrent abdominal pain. She had pelvic CT, HIDA scan, and EGD at that time. She was found to have erosive esophagitis and peptic ulcer disease and then was subsequently discharged. The patient said that she continued to have recurrent pain and had multiple visits to the ER thereafter. She returned back to the emergency department with intractable pain, nausea, and vomiting. Abdominal x-ray did not show any acute findings; however, she was also seen by Dr. Whitt, who did not feel that she had a surgical abdomen at that point but recommended an additional CT of the abdomen and pelvis. Case was also discussed with Dr. Joy who did recommend an MRCP. MRCP did note that the patient appeared to have a retained stone and some common bile duct dilatation. Shortly after her MRCP, she was continued on n.p.o. status given IV pain medication and IV fluids and then was prepped for ERCP with Dr. Simpson. She underwent ERCP on 04/04/19. During that procedure, she was noted to have a 3 to 4 mm distal common bile duct stone, which was successfully removed. The patient was started on sips of clears post procedure. Initially, she was feeling better, she still had some pain; however, it was significantly improved. When her diet was advanced, initially she was not complaining of pain or nausea; however, through that evening and into the morning of 04/06/19 she noted a significant increase in pain and some nausea. I did request Dr. Simpson to see the patient again on the morning of 04/06/19. Her laboratories were redrawn and reviewed. Her liver function still continues to trend down. Her direct bilirubin also continues to trend down as well. She also did state she started to feel better. She did have pain relief with 1 Percocet as well. At this point, she probably still has some inflammation in the area from the stone that was retained and then removed. I counseled the patient extensively on continuing to advance her diet slowly. She is in agreement at this time with being discharged to home and having outpatient followup and laboratory work completed. REVIEW OF SYSTEMS: On day of discharge, the patient is currently denying any fever, fatigue, or chills. No current nausea or vomiting. She has only very mild abdominal pain 2/10. No urinary complaints and no further constitutional complaints. PHYSICAL EXAM: She is well appearing, in no acute distress. Vital signs are blood pressure 141/89, heart rate 71, respiratory rate 18, O2 saturation 98% on room air with a temperature of 98.3. HEENT: The patient is atraumatic, normocephalic. PERRLA, nonicteric sclerae. Oral mucosa is moist. Tongue is midline. Neck is supple, nontender. No JVD noted. No thyromegaly appreciated. Cardiovascular: S1, S2 present. No murmurs, gallops, or rubs noted. Rate and rhythm are regular. Lungs are clear bilaterally to auscultation with no wheezing, rhonchi, or rales. Abdomen is soft, some mild tenderness in the epigastrium and into the right upper quadrant. She has positive bowel sounds in all 4 quadrants. No guarding or rebound noted. was deferred. Musculoskeletal: There is no clubbing, no cyanosis, no edema. She has distal pulses palpable. Full range of motion. Steady gait. Neurologic : Grossly intact. She can be anxious at times. Psychiatric: Cooperative and appropriate. LABORATORY DATA: WBCs 11.5, RBCs 4.47, hemoglobin 13.4, hematocrit 40, platelets 395. Sodium 132; potassium 3.1, repleted; CO2 24; chloride 101; BUN 7 ; creatinine 0.66; GFR 114; BUN-creatinine ratio 10.6; glucose 126; calcium 8.4 ; magnesium 1.9. Total bilirubin 0.80, direct bilirubin 0.20, indirect bilirubin 0.6, AST 42, ALT 125, alk phos 207. CRP 5.78. Total protein 6.1, albumin 3.8, globulin 2.3, albumin-globulin ratio 1.7, lipase 24. IMAGING: MRCP on 04/03/19 shows a small filling defect in the distal common bile tract representing a small calculus. DISCHARGE DIAGNOSES: 1. Common bile duct obstruction status post endoscopic retrograde cholangiopancreatography. 2. History of hypertension. 3. Transaminitis. 4. Abdominal pain secondary to #1. 5. Hypokalemia. 6. Peptic ulcer disease. MEDICATIONS FOR DISCHARGE: Include: 1. Amlodipine 5 mg p.o. in the evening. 2. Protonix 40 mg p.o. b.i.d. 3. Zofran 4 mg sublingual q.6 hours as needed. New medication: Tramadol 50 mg p.o. q.8 hours, max daily dose 3 tablets daily, dispensed 6 tablets. DISPOSITION: The patient is discharged to home in stable condition. FOLLOWUPS: The patient was instructed to follow up with Dr. Joy for followup colonoscopy in 3 months, [facility] with Dr. Colón in the next 1 to 2 weeks. RESTRICTIONS: The patient has no restrictions on work and may return to work immediately. TIME SPENT: Forty five minutes on discharge planning. Again, the patient was discharged in stable condition. SHARONA ALAN, VANI [id number]/[facility] #: [id number] [facility]
[2019-04-07] MEDS ORDERED: Scopolamine PATCH Remove* 1 NOTE MISC PATCH OFF ONE (17:37)
== END 2019-04-06 15:00 | disposition home or self-care (01) ==
LOC: ED 13:24 → SSU 18:55
PROVIDERS: ADMIT Internal Medicine; ATTEND Internal Medicine
PROC: 0FC98ZZ Extirpation of Matter from Common Bile Duct, Via Natural or Artificial Opening Endoscopic (ICD-10-PCS; principal; 2019-04-04 14:00)
DX: K80.51 Calculus of bile duct without cholangitis or cholecystitis with obstruction (principal); I10 Essential (primary) hypertension; E87.6 Hypokalemia; K27.9 Peptic ulcer, site unspecified, unspecified as acute or chronic, without hemorrhage or perforation; J45.909 Unspecified asthma, uncomplicated; R79.89 Other specified abnormal findings of blood chemistry; R11.0 Nausea; R74.0 Nonspecific elevation of levels of transaminase and lactic acid dehydrogenase [LDH]; K21.9 Gastro-esophageal reflux disease without esophagitis; Z90.710 Acquired absence of both cervix and uterus; Z90.722 Acquired absence of ovaries, bilateral; Z90.49 Acquired absence of other specified parts of digestive tract; Z88.5 Allergy status to narcotic agent; Z80.3 Family history of malignant neoplasm of breast
CPT/HCPCS: 36415; 74019; 74181; 74330; 76376; 80053; 80076; 81003; 83605; 83690; 83735; 85025; 85027; 85610; 86140; 93005; 96361; 96374; 96375; 96376; 99284; A9270-GY; C1769; J0330; J0360; J0780; J1100; J1170; J1644; J2250; J2300; J2405; J2543; J2704; J2765; J3010; J3480